=== PATIENT | female | born 1975 ===

== ENCOUNTER 2023-05-15 09:56 | Outpatient (REF) | payer MEDICAID, SELFPAY ==
--- NOTE | ~2023-05-15 | MR_ITS ---
EXAMINATION: MR CERVICAL SPINE WITHOUT CONTRAST CLINICAL INFORMATION: Spastic paraparesis COMPARISON: None TECHNIQUE: MRI of the cervical spine was obtained using routine sequences without contrast. FINDINGS: Motion degraded examination which somewhat limits assessment of cord signal and neural foraminal patency. Normal anatomic alignment. No suspicious marrow signal or focal osseous lesion. The vertebral body heights are maintained. Mild multilevel disc desiccation and height loss.No cervical cord signal abnormality within the limitations of motion artifact. Limited evaluation of the soft tissues of the neck without demonstrated abnormalities. The flow voids of the major cervical vessels are maintained. The cerebellar tonsils are slightly low-lying and extend up to 5 mm below the foramen magnum. No mass effect on the cervicomedullary junction. SPINAL LEVELS: C2-C3: No significant spinal canal or neuroforaminal narrowing C3-C4: Mild facet arthropathy and left uncovertebral hypertrophy. Suggestion of moderate left neural foraminal narrowing. No significant spinal canal stenosis. C4-C5: Uncovertebral hypertrophy.. Suggestion of mild bilateral neural foraminal narrowing. No significant spinal canal stenosis. C5-C6: Left greater than right uncovertebral hypertrophy and mild facet arthropathy. Suggestion of mild right and moderate left neural foraminal narrowing. C6-C7: No significant spinal canal or neuroforaminal narrowing C7-T1: No significant spinal canal or neuroforaminal narrowing MR/MR cervical spine wo con IMPRESSION: Motion degraded examination which somewhat limits assessment of cord signal and neural foraminal patency. 1. No significant spinal canal stenosis, cord compression, or cord signal abnormality within the limitations of motion. 2. Mild to moderate neural foraminal stenosis from C3-C4 to C5-C6 as described above. 3. Slightly low-lying cerebellar tonsils which extend up to 5 mm below the foramen magnum.
== END 2023-05-15 09:57 | disposition home or self-care (01) ==
LOC: HO.MRI 09:56
PROVIDERS: PCP Family Medicine; Visit Provider Psychiatry & Neurology Neurology
DX: G83.89 Other specified paralytic syndromes (principal)
CPT/HCPCS: 72141

== ENCOUNTER 2023-09-30 10:35 | Outpatient (REF) | payer OTHER, SELFPAY ==
--- NOTE | ~2023-09-30 | MR_ITS ---
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 COMPARISON: None available. TECHNIQUE: MRI of the thoracic spine was obtained using routine sequences without contrast. Technical note: Very limited study due to excessive gross patient motion artifact on multiple sequences. FINDINGS: ALIGNMENT: Mild thoracic kyphosis centered at T5-T6 with slight levocurvature at this level. VERTEBRAL BODIES AND BONE MARROW: Vertebral body heights are well maintained. No significant or suspicious bone marrow edema is identified within the limitations of the study. T1 marrow signal is difficult to evaluate due to excessive motion artifact. Cannot exclude diffusely hypointense T1 marrow signal which is nonspecific and should be correlated with CBC with differential and clinical history to exclude chronic anemia or marrow infiltrative disorders but the findings could also be physiologic such as secondary to obesity or smoking. DISC SPACES AND ENDPLATES: Okqu-iw-clnjlsfl multilevel intervertebral disc space height loss is noted between C4-C5 and T10-T11 inclusive, with mild degrees of disc desiccation at these levels and minor degrees of anterior marginal endplate spurring. Endplates appear grossly intact. PARASPINAL SOFT TISSUES: The visualized paravertebral soft tissues are grossly unremarkable. SPINAL CORD: Evaluation of spinal cord signal is limited due to motion artifact. Within these limitations, no definite focal spinal cord lesion, swelling or syrinx is identified. The conus terminates at the L2 level. No cord compression is identified. Limited assessment. SPINAL LEVELS: Limited visualization at C7-T1. No spinal canal or significant neural foraminal stenosis. No disc herniations are identified and there is no significant thoracic spinal canal stenosis. There is mild facet arthropathy on the right at T11-T12 and there is mild right-sided and moderate left-sided facet arthrosis at T9-T10 with [id number] bilateral neural foraminal stenosis at T9-T10. MR/MR thoracic spine wo con IMPRESSION: 1. Limited study due to excessive motion artifact. 2. Mild thoracic kyphosis centered at T5-T6 with slight levocurvature at this level. 3. Vhwx-yz-qczkwtya multilevel discogenic degenerative changes between T4-T5 and T10-T11 inclusive, with no significant disc herniations, spinal canal stenosis or cord compression. There is facet arthropathy at T9-T10 with [id number] bilateral neural foraminal stenosis at this level. 4. No definite spinal cord lesion, swelling or syrinx is identified within the limitations of the study. 5. Diffusely hypointense T1 marrow signal seen throughout the visualized cervical and thoracic spine. This is nonspecific and should be correlated with CBC with differential as discussed above. The findings could be physiologic such as secondary to obesity or smoking.
== END 2023-09-30 10:36 | disposition home or self-care (01) ==
LOC: HO.MRI 10:35
PROVIDERS: Visit Provider Psychiatry & Neurology Neurology
DX: G83.89 Other specified paralytic syndromes (principal)
CPT/HCPCS: 72146

== ENCOUNTER 2024-02-25 11:03 | Outpatient (AMB) | payer MEDICAID, SELFPAY ==
--- NOTE | 2024-02-25 11:06 | A.OFFVIS_ITS ---
Vital Signs 02/25/24 11:15 BP 114/60 Blood Pressure Location Rt brachial Position Sitting Pulse 81 Pulse Source Pulse Oximeter Pulse Oximetry (%) 99 Oxygen Delivery Method Room Air Intake Visit Reasons: RA Intake Note: New pt presents today for RA consult. Previous Rheum in [place] S/p ED [facility] 11/22/23 Currently in [facility] rehab in [place] for the past 2 years after asthma attack Unable to be discharged yet. 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 Required: No Accompanied by: Self / Same As Patient Allergies kiwi Allergy (Verified 02/25/24 11:11) Unknown seafood Allergy (Verified 02/25/24 11:11) Unknown Medication List - Last Reconciled 02/25/24 by Israel Lawler MD albuterol sulfate 2.5 mg inhalation Q6H amitriptyline 10 mg PO BEDTIME apixaban 2.5 mg PO BID baclofen 20 mg PO TID cetirizine (Zyrtec) 10 mg PO DAILY PRN cholecalciferol (vitamin D3) 50 mcg PO DAILY duloxetine 60 mg PO BID fluticasone propion-salmeterol 500-50 mcg/dose (Advair Diskus) 1 inh inhalation Q12H melatonin 6 mg PO BEDTIME PRN methadone (Methadone Intensol) 90 mg PO DAILY montelukast 10 mg PO DAILY omeprazole 40 mg PO DAILY prazosin 6 mg PO BEDTIME tizanidine (Zanaflex) 2 mg PO Q8H PRN trazodone 50 mg PO BEDTIME umeclidinium 62.5 mcg/actuation (Incruse Ellipta) 1 inh inhalation DAILY HPI Comments Details: This is a 48-year-old female who is transferred from rehab for evaluation of her underlying autoimmune rheumatic conditions. Patient stated that she initially presented with skin rashes on her face. Initially it was thought to be lupus. She was evaluated by steam cleaning machine operator and had multiple blood tests and was eventually diagnosed with dermatomyositis. After some time she was diagnosed with rheumatoid arthritis. She was only treated with steroids. She does not recall being on any other immune modulator. She stated that 2 years ago she presented to the hospital with an asthma exacerbation and had to be intubated. She was in a coma for 3 weeks, it took her 8 months to be able to move. She has been on rehab for almost 2 years now due to inability to go up the stairs. She continues to have significant pain in her hands, wrists, ankles. She feels as if her bones are broken. She has had deformity of her feet, look like a clubfoot. She has been evaluated by a neurologist. She also had multiple DVTs, she is on Eliquis. She is unaware of any family history of an autoimmune rheumatic disease. [facility] Medical History Multiple episodes of deep venous thrombosis Dysphagia, oropharyngeal phase GERD without esophagitis Essential hypertension Insomnia Generalized anxiety disorder Obesity Major depressive disorder, recurrent Post-traumatic stress disorder, chronic Obstructive sleep apnea Severe persistent asthma with status asthmaticus Other rheumatoid arthritis with rheumatoid factor of other specified site Other dermatomyositis with myopathy Fibromyalgia Drug-induced myopathy Surgical History S/P total abdominal hysterectomy History of surgery Family History Mother Asthma Colon cancer Familial adenomatous polyposis Father No problems noted. Other Family history of polyps in the colon Social History Alcohol intake: current Alcohol intake frequency: holidays/special occasions only Patient Tobacco Use Status: Former Tobacco user [place] of [place] [facility] [place] myalgias, Reports arthralgias, Reports joint swelling, Reports limited range of motion and Reports stiffness Skin/Breast Reports rash Physical Exam Vital Signs: Last Vital Signs Pulse 81 02/25/24 11:15 BP 114/60 02/25/24 11:15 Pulse Ox 99 02/25/24 11:15 Oxygen Delivery Method Room Air 02/25/24 11:15 Const Other: Cushingoid. On a wheelchair General: cooperative, healthy appearing and comfortable Nutritional Appearance: obese Orientation/consciousness: patient oriented x3 Limitations: wheelchair HEENT Other: laguna facies Mouth: moist mucous membranes Resp Effort & Inspection: normal respiratory effort and able to speak in complete sentences Auscultation: clear to auscultation bilaterally Cardio Rate: regular rate Rhythm: regular rhythm Skin Other: Significant skin thickening of her legs down words, Neuro General: patient oriented x3 Extrem Other: Bilateral tender wrists and pain with flexion-extension Multiple tender PIP is bilaterally without significant swelling Normal nailfold capillaroscopy Normal range of motion of elbows, shoulders without pain Proximal muscle strength 5/5 all 4 extremities Assessment & Plan Assessment & Plan (1) Other rheumatoid arthritis with rheumatoid factor of other specified site: Code(s): M05.8A - Other rheumatoid arthritis with rheumatoid factor of other specified site Category: Medical Plan: This is a 48-year-old female who transferred from rehab for evaluation of her underlying autoimmune rheumatic disease. She states that she was diagnosed with dermatomyositis about 10 years ago, shortly after she was diagnosed with rheumatoid arthritis. She does not recall ever being on any immune modulator other than steroids. Advised patient to try to find the name of her previous steam cleaning machine operator or us to retrieve records. Order comprehensive serology to better understand her underlying autoimmune rheumatic disease. Patient also has significant skin thickening of her lower extremities, possible scleroderma. Will check serologies. If nondiagnostic, can consider a skin biopsy (2) Multiple episodes of deep venous thrombosis: Comment: on Jesús Code(s): I82.509 - Chronic embolism and thrombosis of unspecified deep veins of unspecified lower extremity Category: Medical Plan: Check antiphospholipid antibodies Plan I spent 61 minutes reviewing patient's chart, evaluating patient, ordering diagnostic workup, counseling patient and documenting in the chart Orders: Orders FRANK Reflex Titer and Pattern Today M32.9 - Systemic lupus erythematosus, unspecified Complement C3 Today M32.9 - Systemic lupus erythematosus, unspecified Complete Blood Count Auto Diff Today M32.9 - Systemic lupus erythematosus, unspecified Protein Electrophoresis, Serum Today M32.9 - Systemic lupus erythematosus, unspecified Rheumatoid Factor Today M05.8A - Other rheumatoid arthritis with rheumatoid factor of other specified site Cyclic Citrullinated Peptide Today M05.8A - Other rheumatoid arthritis with rheumatoid factor of other specified site Beta-2 Glycoprotein Antibody Today I82.509 - Chronic embolism and thrombosis of unspecified deep veins of unspecified lower extremity Cardiolipin Antibodies Today I82.509 - Chronic embolism and thrombosis of unspecified deep veins of unspecified lower extremity Lupus Anticoagulant Panel Today I82.509 - Chronic embolism and thrombosis of unspecified deep veins of unspecified lower extremity Aldolase Today M33.12 - Other dermatomyositis with myopathy Gamma Glutamyl Transpeptidase Today M33.12 - Other dermatomyositis with myopathy Anti Extractable Nuclear Ag Today M32.9 - Systemic lupus erythematosus, unspecified Anti DNA DS Antibody Today M32.9 - Systemic lupus erythematosus, unspecified Complement C4 Today M32.9 - Systemic lupus erythematosus, unspecified C Reactive Protein Today M32.9 - Systemic lupus erythematosus, unspecified DNA Double Stranded-Crithidia Today M32.9 - Systemic lupus erythematosus, unspecified Erythrocyte Sedimentation Rate Today M32.9 - Systemic lupus erythematosus, unspecified Protein Creatinine Ratio, Ur Today M32.9 - Systemic lupus erythematosus, unspecified Sjogren's Antibodies Today M32.9 - Systemic lupus erythematosus, unspecified UA w Microscopic Today M32.9 - Systemic lupus erythematosus, unspecified Comprehensive Met. Panel Today M32.9 - Systemic lupus erythematosus, unspecified Hepatitis A,B,C Profile Today Z11.59 - Encounter for screening for other viral diseases Immunofixation Pnl, Serum Today M32.9 - Systemic lupus erythematosus, unspecified T Spot TB Today Z11.7 - Encounter for testing for latent tuberculosis infection Scleroderma 12 Panel Today M34.9 - Systemic sclerosis, unspecified MSA Panel Extended Today M33.13 - Other dermatomyositis without myopathy Creatine Kinase Total Today M33.12 - Other dermatomyositis with myopathy Lactate Dehydrogenase Today M33.12 - Other dermatomyositis with myopathy Coding Level of Care Code New Pt Level 5 (12533) Diagnoses Other rheumatoid arthritis with rheumatoid factor of other specified site M05.8A Multiple episodes of deep venous thrombosis I82.509
[2024-02-25 11:15] VITALS: BP 114/60; PULSE 81; O2SAT 99
== END 2024-02-25 11:51 | disposition home or self-care (01) ==
PROVIDERS: PCP Family Medicine; Visit Provider Student in an Organized Health Care Education/Training Program
DX: M05.8A Other rheumatoid arthritis with rheumatoid factor of other specified site (principal); I82.509 Chronic embolism and thrombosis of unspecified deep veins of unspecified lower extremity
CPT/HCPCS: 99205

== ENCOUNTER → 2024-02-25 11:03 | Outpatient (BNVA) | payer MEDICAID, SELFPAY | PROVIDERS: PCP Family Medicine; Visit Provider Student in an Organized Health Care Education/Training Program | DX: M05.8A Other rheumatoid arthritis with rheumatoid factor of other specified site (principal); I82.509 Chronic embolism and thrombosis of unspecified deep veins of unspecified lower extremity | CPT/HCPCS: 99202 ==

== ENCOUNTER 2024-03-02 08:08 | Outpatient (REF) | payer MEDICAID, SELFPAY ==
[2024-03-02 08:40] LABS: MANUAL DIFF FLAG NO
[2024-03-02 09:28] LABS: Basophils Percent Auto 0.4 % (0-2); Eosinophils Absolute Auto 0.4 X10*3/uL (0.0-0.4); Eosinophils Percent Auto 3.2 % (0-4); Hematocrit 30.2 % (37.0-47.0); Hemoglobin 8.8 g/dl (12.0-16.0); Imm Gran Abs Auto 0.05 X10*3/uL (0.00-0.03); Imm Gran Pct Auto 0.5 % (0.0-0.4); Lymphocytes Absolute Auto 1.6 X10*3/uL (1.2-4.9); Lymphocytes Percent Auto 14.8 % (20-40); Mean Corpuscular HGB Conc 29.1 g/dl (31.0-35.0); Mean Corpuscular Hemoglobin 21.1 pg (27.0-33.0); Mean Corpuscular Volume 72.4 fL (80.0-98.0); Mean Platelet Volume 9.7 fL (9.4-12.3); Monocytes Absolute Auto 0.7 X10*3/uL (0.1-1.2); Monocytes Percent Auto 5.9 % (2-11); NRBC Pct Auto 0.2 /100WBC (0.0-0.2); Neutrophils Absolute Auto 8.4 x10*3/uL (2.0-8.3); Neutrophils Percent Auto 75.2 % (45-73); Platelet Count 391 X10*3/uL (160-400); Red Blood Count 4.17 X10*6/uL (4.20-5.50); White Blood Count 11.1 X10*3/uL (4.8-10.8)
[2024-03-02 09:36] LABS: Appearance Urine Clear; Color Urine Yellow; Glucose Urine UA Negative (Negative); Leukocyte Esterase Urine Negative (Negative); Nitrite Urine Negative (Negative); PH 6.5 (5.0-9.0); Specific Gravity - Urine 1.015 (1.005-1.025); Urine Blood Negative (Negative); Urine Ketones Negative (Negative); Urine Protein Negative (Neg-Trace)
[2024-03-02 09:42] LABS: Bacteria Urine 1+ (None Seen); Hyaline Casts Urine 0-2 /LPF (0-2); RBC Urine 0-2 /HPF (0-2); WBC Urine 0-5 /HPF (0-5)
[2024-03-02 09:55] LABS: Creatinine Urine 90.53 mg/dL; Total Protein Urine Random < 7 mg/dL (<12)
[2024-03-02 10:00] LABS: Alanine Aminotransferase 18 U/L (0-31); Albumin Level 3.7 g/dL (3.5-5.0); Alkaline Phosphatase 137 U/L (39-117); Anion Gap 13 (12-20); Aspartate Amino Transferase 19 U/L (5-31); Bilirubin Total 0.3 mg/dL (0.0-1.0); Blood Urea Nitrogen 12 mg/dL (9-16); C Reactive Protein 1.82 mg/dL (< or = 0.50); Calcium 9.5 mg/dL (8.4-10.2); Carbon Dioxide 30 mmol/L (22-29); Chloride 101 mmol/L (96-108); Estimated Glomerular Filt Rate > 60; Glucose Random 137 mg/dL (60-115); Lactate Dehydrogenase 319 U/L (122-220); Sodium 140 mmol/L (135-145); Total Protein 7.9 g/dL (6.5-8.0)
[2024-03-02 10:08] LABS: Erythrocyte Sedimentation Rate 40 MM/HR (0-20)
[2024-03-02 10:20] LABS: HBS Num1 5.48 mIU/mL (0-7.99); HBsAGNum1 0.26 S/CO (0.00-0.99); Hepatitis A Antibody IgM 0.16 Index (0-0.79); Hepatitis B Surface Antigen Negative (Negative); ~HepC Num1 0.21 S/CO (0.00-0.79); ~Hepatitis A Antibody IgM Nonreactive (Nonreactive); ~Hepatitis B Surface Antibody NONREACTIVE (Nonreactive); ~Hepatitis C Antibody Nonreactive (Nonreactive)
[2024-03-02 10:32] LABS: Rheumatoid Factor < 13.0 IU/mL (<15.0)
[2024-03-02 11:31] LABS: Gamma Glutamyl Transpeptidase 99 U/L (7-33)
[2024-03-02 12:26] LABS: HBc Num2 0.74 S/CO; HBc Num3 0.59 S/CO; Hepatitis B Core Antibody Nonreactive (Nonreactive)
[2024-03-03 23:34] LABS: Complement C3 200 mg/dL (83-193)
[2024-03-04 14:18] LABS: Anti Nuclear Antibody Screen NEGATIVE (NEGATIVE)
[2024-03-04 17:07] LABS: Anti DNA DS Antibody <1 IU/mL; Antibody to SS-A Antigen <1.0 NEG AI (<1.0 NEG); Antibody to SS-B Antigen <1.0 NEG AI (<1.0 NEG); SM/Ribonucleoprotein Ab <1.0 NEG AI (<1.0 NEG); Smith Protein <1.0 NEG AI (<1.0 NEG)
[2024-03-04 20:18] LABS: Cardiolipin IgG Ab <2.0 GPL-U/mL; Cardiolipin IgM Ab 2.6 MPL-U/mL
[2024-03-04 23:19] LABS: Cyclic Citrullinated Peptide <16 UNITS
[2024-03-05 08:28] LABS: TS Negative Control Passed; TS Panel A 0; TS Panel B 4; TS Positive Control Passed; TSpotTB Negative (Negative)
[2024-03-05 09:59] LABS: IgA 432 mg/dL (47-310); IgG 1878 mg/dL (600-1640); IgM 179 mg/dL (50-300)
[2024-03-05 17:03] LABS: Prot Elec - Albumin 3.5 g/dL (3.8-4.8); Prot Elec - Alpha1 0.4 g/dL (0.2-0.3); Prot Elec - Alpha2 0.8 g/dL (0.5-0.9); Prot Elec - Beta 1 0.5 g/dL (0.4-0.6); Prot Elec - Beta 2 0.7 g/dL (0.2-0.5); Prot Elec - Gamma 1.7 g/dL (0.8-1.7); Prot Elec - Total Protein 7.5 g/dL (6.1-8.1)
[2024-03-05 22:59] LABS: Aldolase 8.3 U/L (<=8.1)
[2024-03-09 11:39] LABS: DNAds, Crithidia Antibody Negative (Negative)
[2024-03-09 12:58] LABS: DRVVT Confirmation Negative (Negative); Hexagonal Phase Neutralization Negative (Negative); PTT (LAC) Screen 43 sec (<=40)
[2024-03-10 07:09] LABS: Beta-2 Glycoprotein IgA <2.0 U/mL (<20.0); Beta-2 Glycoprotein IgG <2.0 U/mL (<20.0)
[2024-03-12 15:53] LABS: Centromere Protein A Ab <11 SI (<11); Centromere Protein B Ab <11 SI (<11); Fibrillarin Ab <11 SI (<11); PM SCL 100 Ab <11 SI (<11); PM SCL 75 Ab <11 SI (<11); RNA Polymerase III RP11 Ab <11 SI (<11); RNA Polymerase III RP155 Ab <11 SI (<11); SCL-70 Extractable Nuclear Ab <11 SI (<11); Th-To Ab <11 SI (<11); U1 SNRNP RNP 70KD <11 SI (<11); U1 SNRNP RNP A <11 SI (<11); U1 SNRNP RNP C <11 SI (<11)
[2024-03-14 16:08] LABS: Cytosolic 5'nuc 1A Ab IgG <5 Units; Ej Ab <11 SI (<11); HMGCR Ab IgG <2 CU (<20); Jo-1 Ab <11 SI (<11); MDA5 Ab <11 SI (<11); Mi-2 alpha Ab <11 SI (<11); Mi-2 beta Ab <11 SI (<11); NXP-2 (MJ) Ab <11 SI (<11); Oj Ab <11 SI (<11); Pl-12 Ab <11 SI (<11); Pl-7 Ab <11 SI (<11); SRP Ab <11 SI (<11); TIF1 gamma Ab <11 SI (<11)
== END 2024-03-02 08:09 | disposition home or self-care (01) ==
LOC: HO.LAB 08:08
PROVIDERS: Visit Provider Student in an Organized Health Care Education/Training Program
DX: Z11.59 Encounter for screening for other viral diseases (principal); Z11.7 Encounter for testing for latent tuberculosis infection; M32.9 Systemic lupus erythematosus, unspecified; M05.8A Other rheumatoid arthritis with rheumatoid factor of other specified site; M33.12 Other dermatomyositis with myopathy; M34.9 Systemic sclerosis, unspecified; M33.13 Other dermatomyositis without myopathy
CPT/HCPCS: 36415; 80053; 81001; 82085; 82550; 82570; 82784; 82977; 83516; 83520; 83615; 84156; 84165; 84182; 85025; 85597; 85598; 85613; 85652; 85730; 86038; 86140; 86146; 86147; 86160; 86200; 86225; 86235; 86255; 86334; 86431; 86481; 86704; 86706; 86709; 86803; 87340

== ENCOUNTER 2024-04-23 10:19 | Outpatient (AMB) | payer MEDICAID, SELFPAY ==
--- NOTE | 2024-04-23 10:25 | A.OFFVIS_ITS ---
Vital Signs 04/23/24 10:31 Height 5 ft 1 in Weight 210 lb BMI 39.7 BP 115/62 Blood Pressure Location Lt brachial Position Sitting Pulse 89 Pulse Source Pulse Oximeter Pulse Oximetry (%) 95 Oxygen Delivery Method Room Air Intake Visit Reasons: RA/cm Intake Note: Patient presents for RA. Allergies kiwi Allergy (Verified 04/23/24 10:29) Unknown seafood Allergy (Verified 04/23/24 10:29) Unknown Medication List - Last Reconciled 04/23/24 by Israel Lawler MD albuterol sulfate 2.5 mg inhalation Q6H amitriptyline 10 mg PO BEDTIME apixaban 2.5 mg PO BID baclofen 20 mg PO TID cetirizine (Zyrtec) 10 mg PO DAILY PRN cholecalciferol (vitamin D3) 50 mcg PO DAILY duloxetine 60 mg PO BID fluticasone propion-salmeterol 500-50 mcg/dose (Advair Diskus) 1 inh inhalation Q12H melatonin 6 mg PO BEDTIME PRN methadone (Methadone Intensol) 55 mg PO DAILY montelukast 10 mg PO DAILY omeprazole 40 mg PO DAILY prazosin 6 mg PO BEDTIME tizanidine (Zanaflex) 2 mg PO Q8H PRN trazodone 50 mg PO BEDTIME umeclidinium 62.5 mcg/actuation (Incruse Ellipta) 1 inh inhalation DAILY HPI Comments Details: Patient returns for follow-up. She stated that 4 days ago she started have pain and swelling of her right foot. She started antibiotics yesterday he continues to have diffuse joint pain especially of her right hand and wrist Initial history: This is a 48-year-old female who is transferred from rehab for evaluation of her underlying autoimmune rheumatic conditions. Patient stated that she initially presented with skin rashes on her face. Initially it was thought to be lupus. She was evaluated by rn provider relations and had multiple blood tests and was eventually diagnosed with dermatomyositis. After some time she was diagnosed with rheumatoid arthritis. She was only treated with steroids. She does not recall being on any other immune modulator. She stated that 2 years ago she presented to the hospital with an asthma exacerbation and had to be intubated. She was in a coma for 3 weeks, it took her 8 months to be able to move. She has been on rehab for almost 2 years now due to inability to go up the stairs. She continues to have significant pain in her hands, wrists, ankles. She feels as if her bones are broken. She has had deformity of her feet, look like a clubfoot. She has been evaluated by a neurologist. She also had multiple DVTs, she is on Eliquis. She is unaware of any family history of an autoimmune rheumatic disease. [facility] Medical History (Updated 04/23/24 @ 11:16 by Israel Lawler MD) Multiple episodes of deep venous thrombosis Dysphagia, oropharyngeal phase GERD without esophagitis Essential hypertension Insomnia Generalized anxiety disorder Obesity Major depressive disorder, recurrent Post-traumatic stress disorder, chronic Obstructive sleep apnea Severe persistent asthma with status asthmaticus Other dermatomyositis with myopathy Fibromyalgia Drug-induced myopathy Surgical History S/P total abdominal hysterectomy History of surgery Family History Mother Asthma Colon cancer Familial adenomatous polyposis Father No problems noted. Other Family history of polyps in the colon Social History Alcohol intake: current Alcohol intake frequency: holidays/special occasions only Patient Tobacco Use Status: Former Tobacco user Review of Systems Musc Reports myalgias, Reports arthralgias, Reports joint swelling, Reports limited range of motion and Reports stiffness Skin/Breast Reports rash Physical Exam Vital Signs: Last Vital Signs Pulse 89 04/23/24 10:31 BP 115/62 04/23/24 10:31 Pulse Ox 95 04/23/24 10:31 Oxygen Delivery Method Room Air 04/23/24 10:31 BMI result Body Mass Index 39.7 Const Other: Cushingoid. On a wheelchair General: cooperative, healthy appearing and comfortable Nutritional Appearance: obese Orientation/consciousness: patient oriented x3 Limitations: wheelchair HEENT Other: laguna facies Mouth: moist mucous membranes Resp Effort & Inspection: normal respiratory effort and able to speak in complete sentences Auscultation: clear to auscultation bilaterally Cardio Rate: regular rate Rhythm: regular rhythm Skin Other: Significant skin thickening of her legs downwards Right foot erythema swelling warmth and tenderness dorsally Neuro General: patient oriented x3 Extrem Other: Bilateral tender wrists and pain with flexion-extension Multiple tender PIP is bilaterally without significant swelling Normal nailfold capillaroscopy Normal range of motion of elbows, shoulders without pain Proximal muscle strength 5/5 all 4 extremities Assessment & Plan Assessment & Plan (1) Seronegative rheumatoid arthritis: Comment: dx around 2013 PDN only Code(s): M06.00 - Rheumatoid arthritis without rheumatoid factor, unspecified site Category: Medical Plan: This is a 48-year-old female with seronegative RA who presents for follow-up after completion of her diagnostic workup. She continues to have diffuse synovitis.. Multiple swollen and tender joints on exam. High inflammatory markers. We will need to start DMARDs.. Given patient's multiple comorbidities and multiple medication interactions she would not be a candidate for multiple medicines, hydroxychloroquine would be contraindicated as patient is on methadone and there is risk of QTC prolongation. Not a candidate for methotrexate, leflunomide, sulfasalazine due to transaminitis. Discussed risks and benefits of TNF inhibitors. Patient agreed to proceed. Will start prior authorization for [facility] before next visit in 3 months (2) Skin thickening: Code(s): R23.4 - Changes in skin texture Category: Medical Plan: Significant skin thickening of her legs , ankles and feet downwards. Possible scleroderma. Will refer patient to general surgery for a full-thickness skin biopsy (3) Cellulitis: Code(s): L03.90 - Cellulitis, unspecified Category: Medical Qualifiers: Site of cellulitis: extremity Laterality: right Site of cellulitis of extremity: lower extremity Qualified Code(s): L03.115 - Cellulitis of right lower limb Plan: Right foot cellulitis. Patient started on antibiotics yesterday (4) Long-term use of high-risk medication: Code(s): Z79.899 - Other exterminator termite (current) drug therapy Category: Medical Plan: Side effects of Enbrel were discussed with the patient in detail including increased risk of infection, demyelinating disease, reactivation of latent TB, possible increased risk of solid and skin tumors. Patient fully aware. Advised patient to seek medical care MOE if patient has an infection and advised patient to stop the medication until the infection is resolved. Plan I spent 47 minutes reviewing patient's chart, evaluating patient, ordering diagnostic workup, counseling patient and documenting in the chart Orders: Orders Complete Blood Count Auto Diff 3 Months M05.8A - Other rheumatoid arthritis with rheumatoid factor of other specified site Erythrocyte Sedimentation Rate 3 Months M05.8A - Other rheumatoid arthritis with rheumatoid factor of other specified site Comprehensive Met. Panel 3 Months M05.8A - Other rheumatoid arthritis with rheumatoid factor of other specified site C Reactive Protein 3 Months M05.8A - Other rheumatoid arthritis with rheumatoid factor of other specified site Referrals General Surgery Referral M34.9 - Systemic sclerosis, unspecified Coding Level of Care Code Est Pt Level 5 (71414) Complex EM visit Add On G2211 Diagnoses Seronegative rheumatoid arthritis M06.00 Skin thickening R23.4 Cellulitis of right lower extremity L03.115 Site of cellulitis: extremity Laterality: right Site of cellulitis of extremity: lower extremity Long-term use of high-risk medication Z79.899
[2024-04-23 10:31] VITALS: BP 115/62; PULSE 89; O2SAT 95; BMI 39.7
== END 2024-04-23 11:11 | disposition home or self-care (01) ==
PROVIDERS: PCP Hospitalist; Visit Provider Student in an Organized Health Care Education/Training Program
DX: M06.09 Rheumatoid arthritis without rheumatoid factor, multiple sites (principal); R23.4 Changes in skin texture; L03.115 Cellulitis of right lower limb; Z79.899 Other long term (current) drug therapy
CPT/HCPCS: 99215

== ENCOUNTER → 2024-04-23 10:19 | Outpatient (BNVA) | payer MEDICAID, SELFPAY | PROVIDERS: PCP Hospitalist; Visit Provider Student in an Organized Health Care Education/Training Program | DX: M06.00 Rheumatoid arthritis without rheumatoid factor, unspecified site (principal); R23.4 Changes in skin texture; L03.115 Cellulitis of right lower limb; Z79.899 Other long term (current) drug therapy | CPT/HCPCS: 99212 ==

== ENCOUNTER 2024-05-05 14:24 | Outpatient (AMB) | payer MEDICAID, SELFPAY ==
--- NOTE | 2024-05-05 14:30 | A.OFFVIS_ITS ---
Vital Signs 05/05/24 14:38 Height 5 ft 1 in Weight 210 lb BMI 39.7 Intake Visit Reasons: Cellulitis of right lower limb Intake Note: This patient presents for Cellulitis of right lower limb assessment, full thickness skin biopsy of her feet. Patient c/o; reports no complaints. Administrative Office Manager Required: No Accompanied by: Self / Same As Patient Allergies kiwi Allergy (Verified 05/05/24 14:39) Unknown seafood Allergy (Verified 05/05/24 14:39) Unknown Medication List - Last Reconciled 05/05/24 by Barry Ellis MD albuterol sulfate 2.5 mg inhalation Q6H amitriptyline 10 mg PO BEDTIME apixaban 2.5 mg PO BID baclofen 20 mg PO TID cetirizine (Zyrtec) 10 mg PO DAILY PRN cholecalciferol (vitamin D3) 50 mcg PO DAILY duloxetine 60 mg PO BID Enbrel SureClick (etanercept) 50 mg subcut QWEEK NS fluticasone propion-salmeterol 500-50 mcg/dose (Advair Diskus) 1 inh inhalation Q12H melatonin 6 mg PO BEDTIME PRN methadone (Methadone Intensol) 55 mg PO DAILY montelukast 10 mg PO DAILY omeprazole 40 mg PO DAILY prazosin 6 mg PO BEDTIME tizanidine (Zanaflex) 2 mg PO Q8H PRN trazodone 50 mg PO BEDTIME umeclidinium 62.5 mcg/actuation (Incruse Ellipta) 1 inh inhalation DAILY HPI HPI Cellulitis of right lower limb: Details: 48 year female referred for a skin biopsy. She is being followed by the distribution sales representative because of rheumatoid arthritis. She has diffuse synovitis along with significant joint swelling and pain. 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 She has good use of her upper extremities but is unable to walk or stand up. [facility] Medical History Multiple episodes of deep venous thrombosis Dysphagia, oropharyngeal phase GERD without esophagitis Essential hypertension Insomnia Generalized anxiety disorder Obesity Major depressive disorder, recurrent Post-traumatic stress disorder, chronic Obstructive sleep apnea Severe persistent asthma with status asthmaticus Other dermatomyositis with myopathy Fibromyalgia Drug-induced myopathy Surgical History S/P total abdominal hysterectomy History of surgery Family History Mother Asthma Colon cancer Familial adenomatous polyposis Father No problems noted. Other Family history of polyps in the colon Social History Alcohol intake: current Alcohol intake frequency: holidays/special occasions only Patient Tobacco Use Status: Former Tobacco user Review of Systems Const Denies chills and Denies fever(s) Card Denies chest pain Resp Denies cough GI Denies abdominal pain Denies difficulty voiding Musc Reports back pain and Reports arthralgias Physical Exam Vital Signs: BMI result Body Mass Index 39.7 Const Other: On wheelchair General: comfortable and no acute distress Resp Effort & Inspection: normal respiratory effort Cardio Rate: regular rate GI Palpation (GI): Soft to palpation and not firm Neuro Other: Both ankles are in plantar extension Extrem Other: Some skin thickening of both lower extremities Office Procedures Skin Biopsy Details: The area of the lower leg distally was chosen for the skin biopsy. This was prepped and draped. Lidocaine 1% was used for local anesthesia. I used a dermal punch biopsy kit and a circular piece of full-thickness of the skin and subcutaneous layer was excised. This was sent as a specimen. I applied dressings using gauze. She tolerated procedure well. There were no immediate complications. Informed consent given: Yes Type of Biopsy: punch Anesthesia: local Hemostasis: pressure Wound closure: secondary intention Patient tolerated procedure: well Complications: No Assessment & Plan Assessment & Plan (1) Skin thickening: Code(s): R23.4 - Changes in skin texture Category: Medical Plan: I was requested to do a skin biopsy. A skin biopsy full-thickness using a dermal punch biopsy kit was done. She tolerated procedure well She is to keep the dressings on until May 07. She can then get the incision wet. She has to change dressings daily starting that day She can follow up with me on a p.r.n. basis I plan to forward the results of the biopsy to her director of marketing operations. Orders: Orders Surgical Today R23.4 - Changes in skin texture Coding Level of Care Code New Pt Level 3 (91793) Diagnoses Skin thickening R23.4
[2024-05-05 14:38] VITALS: BMI 39.7
== END 2024-05-05 15:21 | disposition home or self-care (01) ==
PROVIDERS: PCP Hospitalist; Visit Provider Surgery
DX: R23.4 Changes in skin texture (principal)
CPT/HCPCS: 11104; 99203

== ENCOUNTER 2024-05-05 14:24 | Outpatient (REF) | payer MEDICAID, SELFPAY | END 2024-05-05 14:25 | disposition home or self-care (01) | LOC: HO.LNP 14:24 | PROVIDERS: PCP Hospitalist; Visit Provider Surgery | DX: R23.4 Changes in skin texture (principal) | CPT/HCPCS: 11104; 88304; 88305; 99202 ==

== ENCOUNTER 2024-07-28 10:20 | Outpatient (AMB) | payer MEDICAID, SELFPAY ==
--- NOTE | 2024-07-28 10:24 | MHC.OFFVIS ---
Vital Signs 07/28/24 10:30 Height 5 ft 1 in Weight 208 lb BMI 39.3 BP 115/60 Blood Pressure Location Lt brachial Position Sitting Pulse 80 Pulse Source Pulse Oximeter Pulse Oximetry (%) 98 Oxygen Delivery Method Room Air Intake Visit Reasons: RA/LM Intake Note: Patient presents for RA. Allergies kiwi Allergy (Verified 07/28/24 10:28) Unknown seafood Allergy (Verified 07/28/24 10:28) Unknown Medication List - Last Reconciled 07/28/24 by Israel Lawler MD albuterol sulfate 2.5 mg inhalation Q6H amitriptyline 10 mg PO BEDTIME apixaban 2.5 mg PO BID baclofen 20 mg PO TID cetirizine (Zyrtec) 10 mg PO DAILY PRN cholecalciferol (vitamin D3) 50 mcg PO DAILY duloxetine 60 mg PO BID Enbrel SureClick (etanercept) 50 mg subcut QWEEK NS fluticasone propion-salmeterol 500-50 mcg/dose (Advair Diskus) 1 inh inhalation Q12H melatonin 6 mg PO BEDTIME PRN methadone (Methadone Intensol) 55 mg PO DAILY montelukast 10 mg PO DAILY omeprazole 40 mg PO DAILY prazosin 6 mg PO BEDTIME tizanidine (Zanaflex) 2 mg PO Q8H PRN trazodone 50 mg PO BEDTIME umeclidinium 62.5 mcg/actuation (Incruse Ellipta) 1 inh inhalation DAILY HPI Comments Details: Patient returns for follow-up. She has been taking Enbrel injections regularly for the last 2 months. She states that her pains are about the same. She continues to have pain in her hands, continues to have burning bandlike pain in her right lower extremity especially at night. She has been having difficulty with range of motion of her left shoulder. Difficulty doing her hair. This started about 6-8 months ago. She completed physical therapy about a month ago without significant improvement. Initial history: This is a 48-year-old female who is transferred from rehab for evaluation of her underlying autoimmune rheumatic conditions. Patient stated that she initially presented with skin rashes on her face. Initially it was thought to be lupus. She was evaluated by vibrator equipment tester and had multiple blood tests and was eventually diagnosed with dermatomyositis. After some time she was diagnosed with rheumatoid arthritis. She was only treated with steroids. She does not recall being on any other immune modulator. She stated that 2 years ago she presented to the hospital with an asthma exacerbation and had to be intubated. She was in a coma for 3 weeks, it took her 8 months to be able to move. She has been on rehab for almost 2 years now due to inability to go up the stairs. She continues to have significant pain in her hands, wrists, ankles. She feels as if her bones are broken. She has had deformity of her feet, look like a clubfoot. She has been evaluated by a neurologist. She also had multiple DVTs, she is on Eliquis. She is unaware of any family history of an autoimmune rheumatic disease. [facility] Medical History Multiple episodes of deep venous thrombosis Dysphagia, oropharyngeal phase GERD without esophagitis Essential hypertension Insomnia Generalized anxiety disorder Obesity Major depressive disorder, recurrent Post-traumatic stress disorder, chronic Obstructive sleep apnea Severe persistent asthma with status asthmaticus Other dermatomyositis with myopathy Fibromyalgia Drug-induced myopathy Surgical History S/P total abdominal hysterectomy History of surgery Family History Mother Asthma Colon cancer Familial adenomatous polyposis Father No problems noted. Other Family history of polyps in the colon Social History Alcohol intake: current Alcohol intake frequency: holidays/special occasions only Patient Tobacco Use Status: Former Tobacco user Review of Systems [facility] Reports myalgias, Reports arthralgias, Reports limited range of motion, Reports radiating pain into limb and Reports stiffness Physical Exam Vital Signs: Last Vital Signs Pulse 80 07/28/24 10:30 BP 115/60 07/28/24 10:30 Pulse Ox 98 07/28/24 10:30 Oxygen Delivery Method Room Air 07/28/24 10:30 BMI result Body Mass Index 39.3 Const Other: Cushingoid. On a wheelchair General: cooperative, healthy appearing and comfortable Nutritional Appearance: obese Orientation/consciousness: patient oriented x3 Limitations: wheelchair HEENT Other: laguna facies Mouth: moist mucous membranes Resp Effort & Inspection: normal respiratory effort and able to speak in complete sentences Auscultation: clear to auscultation bilaterally Cardio Rate: regular rate Rhythm: regular rhythm Skin Other: Significant skin thickening of her legs downwards Neuro General: patient oriented x3 Extrem Other: No tenderness or swelling of both wrists and no pain with flexion-extension Squaring of right 1st CMC joint associated with tenderness No swelling or tenderness of her PIP is Multiple Heberden's nodes that are mildly tender Limited range of motion of left shoulder Few fibromyalgia tender points Bilateral knee crepitus Normal nailfold capillaroscopy Office Procedures AMB Joint Injection/Aspiration Joint Injection/Aspiration Primary Site: left shoulder Prep: site was prepped using sterile technique and ethochloride spray was applied Injected: 40 mg of, Kenalog, with 1 mL of, 1% plain lidocaine and in the subcromial space Approach Used: posterolateral Procedure: The patient tolerated the procedure well Coding Details: With the patient's consent the left shoulder was prepped with ChloraPrep and alcohol. Under a topical ethyl chloride spray the left subacromial space was injected with 40 mg of triamcinolone and 1 cc of 1% lidocaine. The patient tolerated the procedure without any acute adverse effects. - Large joint Procedure code (CPT) selection complete Office Meds Kenalog 40 mg/mL suspension for injection Performing Provider: Israel Lawler MD Performing Location: [facility] Administered by: Israel Lawler MD on 07/28/24 11:10 Dose Route Admin Location Dispensed Lot Number Expiration Date [facility] Meter Reading Clerk 40 mg intra-articular Left shoulder 1 mL [id number] 02/20/26 [address]-1 [employer] lidocaine (PF) 10 mg/mL (1 %) injection solution Performing Provider: Israel Lawler MD Performing Location: [facility] Administered by: Israel Lawler MD on 07/28/24 11:10 Dose Route Admin Location Dispensed Lot Number Expiration Date [facility] Meter Reading Clerk 10 mg Infiltration 2 mL [id number] 12/25/26 [id number] [facility] Results Reviewed Results Reviewed: Skin biopsy 04/2024 Skin, right leg, biopsy: Skin and subcutaneous tissue with scattered melanin pigment and dermal melanophages and non-specific septal thickening (see comment). COMMENT: The overall findings are non-specific and may not be billing representative of the clinical lesion. The differential diagnosis includes a resolving inflammatory process or scar. Diagnostic features of scleroderma are not identified Assessment & Plan Assessment & Plan (1) Seronegative rheumatoid arthritis: Comment: dx around 2013 PDN only Enbrel 05/2024 Code(s): M06.00 - Rheumatoid arthritis without rheumatoid factor, unspecified site Category: Medical Plan: This is a 48-year-old female with seronegative RA who presents for follow-up she has started Enbrel 50 mg weekly about 2 months ago. On exam there is no active synovitis. Her complaints today are related to degenerative arthritis as well as fibromyalgia and neuropathy. Continue with Enbrel 50 mg subcutaneously weekly Labs (CBC, CMP, ESR, CRP) before next visit in 3 months (2) Skin thickening: Code(s): R23.4 - Changes in skin texture Category: Medical Plan: Skin biopsy rule out scleroderma (3) Long-term use of high-risk medication: Code(s): Z79.899 - Other termite treater helper (current) drug therapy Category: Medical Plan: Side effects of Enbrel were discussed with the patient in detail including increased risk of infection, demyelinating disease, reactivation of latent TB, possible increased risk of solid and skin tumors. Patient fully aware. Advised patient to seek medical care MOE if patient has an infection and advised patient to stop the medication until the infection is resolved. (4) Subacromial bursitis of left shoulder joint: Code(s): M75.52 - Bursitis of left shoulder Category: Medical Plan: Symptomatic for the last 6-8 months, completing physical therapy about a month ago, remains symptomatic, with patient's consent, left shoulder was injected with Kenalog today. Plan I spent 25 minutes reviewing patient's chart, evaluating patient, ordering diagnostic workup, counseling patient and documenting in the chart Orders: Orders AMB Joint Injection/Aspiration Today M75.52 - Bursitis of left shoulder Medications: New lidocaine (PF) 10 mg Infiltration ONCE 2 mL 0RF M75.52 - Bursitis of left shoulder Kenalog (triamcinolone acetonide) 40 mg intra-articular ONCE 1 mL 0RF NS M75.52 - Bursitis of left shoulder Coding Level of Care Code Est Pt Level 4 (61080) Complex EM visit Add On G2211 Diagnoses Seronegative rheumatoid arthritis M06.00 Skin thickening R23.4 Long-term use of high-risk medication Z79.899 Subacromial bursitis of left shoulder joint M75.52 CPT Codes Coding - 17707 Large joint: 23580 - Large joint ([id number])
[2024-07-28 10:30] VITALS: BP 115/60; PULSE 80; O2SAT 98; BMI 39.3
== END 2024-07-28 11:07 | disposition home or self-care (01) ==
LOC: HO.RHE 10:20
PROVIDERS: PCP Hospitalist; Visit Provider Student in an Organized Health Care Education/Training Program
DX: M06.09 Rheumatoid arthritis without rheumatoid factor, multiple sites (principal); R23.4 Changes in skin texture; Z79.899 Other long term (current) drug therapy; M75.52 Bursitis of left shoulder
CPT/HCPCS: 20610; 99214

== ENCOUNTER → 2024-07-28 10:20 | Outpatient (BNVA) | payer MEDICAID, SELFPAY | PROVIDERS: PCP Hospitalist; Visit Provider Student in an Organized Health Care Education/Training Program | DX: M75.52 Bursitis of left shoulder (principal); M06.00 Rheumatoid arthritis without rheumatoid factor, unspecified site; R23.4 Changes in skin texture; Z79.899 Other long term (current) drug therapy | CPT/HCPCS: 20610; 99212; J2003; J3300 ==

== ENCOUNTER 2025-03-02 15:20 | Outpatient (AMB) | payer MEDICARE, MEDICAID, SELFPAY ==
--- NOTE | 2025-03-02 15:22 | A.OFFVIS_ITS ---
Vital Signs 03/02/25 15:33 Height 5 ft 1 in Weight 178 lb BMI 33.6 BP 112/74 Blood Pressure Location Lt brachial Position Sitting Pulse 78 Pulse Source Pulse Oximeter Pulse Oximetry (%) 98 Oxygen Delivery Method Room Air Intake Visit Reasons: RA Intake Note: Patient presents for RA follow up. Patient has not received Enbrel since [facility] was close down and patient is back home. Patient wants to continue Enbrel. Allergies kiwi Allergy (Verified 03/02/25 15:30) Unknown seafood Allergy (Verified 03/02/25 15:30) Unknown Medication List - Last Reconciled 03/02/25 by Jacqueline Baker MD albuterol sulfate 2.5 mg inhalation Q6H amitriptyline 10 mg PO BEDTIME apixaban 2.5 mg PO BID baclofen 20 mg PO TID cetirizine (Zyrtec) 10 mg PO DAILY PRN cholecalciferol (vitamin D3) 50 mcg PO DAILY duloxetine 60 mg PO BID fluticasone propion-salmeterol 500-50 mcg/dose (Advair Diskus) 1 inh inhalation Q12H melatonin 6 mg PO BEDTIME PRN methadone (Methadone Intensol) 55 mg PO DAILY montelukast 10 mg PO DAILY omeprazole 40 mg PO DAILY prazosin 6 mg PO BEDTIME tizanidine (Zanaflex) 2 mg PO Q8H PRN trazodone 50 mg PO BEDTIME umeclidinium 62.5 mcg/actuation (Incruse Ellipta) 1 inh inhalation DAILY HPI Comments Details: Patient is a 49-year-old female with who recurrent DVTs, seronegative rheumatoid arthritis, fibromyalgia and dermatomyositis here today for follow up Interval History: Patient last seen 07/28/[address] Lawler. At that visit she was following up for her multiple rheumatologic conditions including seronegative rheumatoid arthritis and dermatomyositis. She was on Enbrel 50 mg every week but despite this consistently for the past 2 months she reported that her pains were unchanged. She also reported difficulty with the range of motion of her left shoulder and unable to do her hair. No improvement after physical therapy. She received a steroid injection of her left shoulder Her exam did not show any evidence of active synovitis and her pains were attributed to degenerative joint disease. No new complaints today Stopped Enbrel 08/2024 Left shoulder improved after injection Requesting right shoulder injection today. Rheumatologic History: dx around 2013 PDN only Enbrel 05/2024 Initial history: This is a 48-year-old female who is transferred from rehab for evaluation of her underlying autoimmune rheumatic conditions. Patient stated that she initially presented with skin rashes on her face. Initially it was thought to be lupus. She was evaluated by b2b appointment setter and had multiple blood tests and was eventually diagnosed with dermatomyositis (? circumstances surrounding the diagnosis). After some time she was diagnosed with rheumatoid arthritis. She was only treated with steroids. She does not recall being on any other immune modulator. She stated that 2 years ago she presented to the hospital with an asthma exacerbation and had to be intubated. She was in a coma for 3 weeks, it took her 8 months to be able to move. She has been on rehab for almost 2 years now due to inability to go up the stairs. She continues to have significant pain in her hands, wrists, ankles. She feels as if her bones are broken. She has had deformity of her feet, look like a clubfoot. She has been evaluated by a neurologist. She also had multiple DVTs, she is on Eliquis. She is unaware of any family history of an autoimmune rheumatic disease. Current Rheumatology Medication(s): Enbrel 50mg SC every week (not taking) [facility] Medical History (Updated 07/28/24 @ 11:09 by Israel Lawler MD) Multiple episodes of deep venous thrombosis Dysphagia, oropharyngeal phase GERD without esophagitis Essential hypertension Insomnia Generalized anxiety disorder Obesity Major depressive disorder, recurrent Post-traumatic stress disorder, chronic Obstructive sleep apnea Severe persistent asthma with status asthmaticus Other dermatomyositis with myopathy Fibromyalgia Drug-induced myopathy Surgical History History of ankle surgery S/P total abdominal hysterectomy History of surgery Family History Mother Asthma Colon cancer Familial adenomatous polyposis Father No problems noted. Other Family history of polyps in the colon Social History Household Members: Family Housing: House Alcohol intake: current Alcohol intake frequency: holidays/special occasions only Patient Tobacco Use Status: Former Tobacco user Review of Systems Const Details: Review of Systems Constitutional: Denies fever, chills, weight loss ENT: Denies vision changes, eye pain or eye redness, dental caries, dry mouth GI: Denies nausea, vomiting, diarrhea, abdominal pain, change in BM Pulm: Denies SOB, NASH, hemoptysis, wheezing Cards: Denies chest pain, palpitations Skin: Denies Raynaud's, rash, nail changes, photosensitivity, [employer]: Denies headaches, weakness, paresthesias, recurrent falls MSK: as per HPI All other systems reviewed and are unremarkable except noted above Physical Exam Vital Signs: Last Vital Signs Pulse 78 03/02/25 15:33 BP 112/74 03/02/25 15:33 Pulse Ox 98 03/02/25 15:33 Oxygen Delivery Method Room Air 03/02/25 15:33 BMI result Body Mass Index 33.6 Vital signs reviewed Physical Examination CONSTITUITIONAL Patient alert and cooperative. Well appearing and in no apparent painful distress Examined in wheel chair HEENT Conjunctiva and sclera clear.?No lymphadenopathy. ? CHEST/RESPIRATORY SYSTEM Normal respiratory effort and able to speak in complete sentences. ?Clear to auscultation bilaterally. ?No crackles, rales, rhonchi, wheezes heard. CARDIAC SYSTEM Regular rate and rhythm. ?S1 and S2 heard no murmurs. ?Radial pulses intact bilaterally MSK Hands: ?Able to make a fist. No synovitis noted to the MCPs, PIPs or DIPs. ?No tenderness to palpation of these joints. Prominent herbeden's nodes Wrists: ?Full range of motion at the wrists without pain. ?No tenderness to palpation or synovitis noted to the wrists. Elbows: Full range of motion without pain. No tenderness, weakness, swelling, increased warmth or erythema. Shoulders: Full range of active range of motion without pain. No tenderness, weakness, swelling, increased warmth or erythema. TTP of the right subacromial bursa Knees: ?Full range of motion. ?No tenderness, swelling, increased warmth or erythema.?No effusion or crepitations Ankles: Full range of motion. ?No tenderness, swelling, increased warmth or erythema.? Feet: ?Negative squeeze test. ?No tenderness to palpation or swelling of the MTPs. Foot drop contractures bilaterally Tender points:?No tenderness to palpation of the bilateral trapezius, supraspinatus, greater trochanters, anterior costochondral junctions, bilateral gluteal areas, bilateral suboccipital muscle insertions SKIN Skin intact without rashes. Office Procedures AMB Joint Injection/Aspiration Joint Injection/Aspiration Details: Procedure was explained to the patient and consent was obtained. ? The area of interest was identified and confirmed with patient. ?This was subsequently cleaned with chlorhexidine x3. ? The area was then anesthetized using ethyl chloride spray. 40 mg Kenalog with 1 cc 1% lidocaine was injected without issue. ?Minimal to no bleeding. ?Patient tolerated procedure. Primary Site: right shoulder Prep: site was prepped using aseptic technique and ethochloride spray was applied Injected: 40 mg of, Kenalog, with 1 mL of, 1% plain lidocaine and in the subcromial space Procedure: The patient tolerated the procedure well Coding 82050 - Large joint Procedure code (CPT) selection complete Office Meds lidocaine (PF) 10 mg/mL (1 %) injection solution Performing Provider: Jacqueline Baker MD Performing Location: [facility] [facility] Administered by: Jacqueline Baker MD on 03/02/25 16:11 Dose Route Admin Location Dispensed Lot Number Expiration Date [facility] [employer] Teacher 1 mL Infiltration right shoudler 2 mL [id number] 11/20/26 41880-884-00 [employer] Synvisc-One 48 mg/6 mL intra-articular syringe Performing Provider: Jacqueline Baker MD Performing Location: [facility] [place] [facility] Documented (not given) by: Jacqueline Baker MD on 03/02/25 16:11 Reason Not Given: No Longer Necessary Kenalog 40 mg/mL suspension for injection Performing Provider: Jacqueline Baker MD Performing Location: [facility] [place] [facility] Administered by: Jacqueline Baker MD on 03/02/25 16:11 Dose Route Admin Location Dispensed Lot Number Expiration Date [facility] [employer] Teacher 40 mg intrabursal right shoulder 1 mL [id number] 12/21/25 [address]-7 [employer] Results Reviewed Results Reviewed: Laboratory Tests 03/02/24 08:35 WBC 11.1 H RBC 4.17 L Hgb 8.8 L Hct 30.2 L Plt Count 391 ESR 40 H Sodium 140 Potassium 4.0 Chloride 101 Carbon Dioxide 30 H BUN 12 Creatinine 0.75 AST 19 ALT 18 Total Creatine Kinase 96 C-Reactive Protein 1.82 H Aldolase 8.3 H Laboratory Tests 03/02/24 08:35 Rheumatoid Factor < 13.0 Cycl Citrul Peptide IgG <16 FRANK Screen NEGATIVE MACEY-1 Antibody <11 EJ Antibody <11 OJ Antibody <11 Mi-2-Alpha Ab <11 Mi-2-Beta Ab <11 NXP-2 Ab <11 PL-7 Antibody <11 PL-12 Antibody <11 SRP Ab <11 MDA5 Ab <11 Myos P155/140 TIF1-g Ab <11 SS-A/Ro Antibody <1.0 NEG SS-B/La Antibody <1.0 NEG Sm (Guo) Antibody <1.0 NEG U1 snRNA A Antibody <11 U1 snRNA C Antibody <11 U1 snRNA 70kD Antibody <11 SM/CARPET TILE LAYER IgG Antibody <1.0 NEG Scl-70 Scleroderma Ab <11 A-PM Scleroderma 75 Ab <11 A-PM Scleroderma 100 Ab <11 Double Strand DNA Ab <1 Anti-ds DNA (Crithidia) Negative Th/To CARPET TILE LAYER Ab <11 U3-CARPET TILE LAYER (Fibrillarin) Ab <11 RNA Polymerase III RP11 Ab <11 RNA Polymerase III RP155 Ab <11 Centromere B Antibody <11 Centromere Protein A Ab <11 HMGCR IgG Antibody <2 NT5C1A IgG Antibody <5 Beta-2-GPI IgG Ab <2.0 Beta-2-GPI IgA Ab <2.0 Beta-2-GPI IgM Ab 3.0 Anti-Cardiolipin IgG Ab <2.0 Anti-Cardiolipin IgM Ab 2.6 Complement C3 200 H Complement C4 29 Assessment & Plan Assessment & Plan (1) Seronegative rheumatoid arthritis: Comment: dx around 2013 PDN only Enbrel 05/2024 Code(s): M06.00 - Rheumatoid arthritis without rheumatoid factor, unspecified site Category: Medical Plan: #Seronegative RA Patient is a 49-year-old female with seronegative rheumatoid arthritis here today for follow up. Not currently on any immunosuppression and joints without any evidence of synovitis. We will continue to monitor off immunosuppression Plan - Monitor off immunosuppression - RTC 4 months - Labs before visit: CBC, CMP, ESR, CRP, Hepatitis panel and T spot (2) Other dermatomyositis with myopathy: Code(s): M33.12 - Other dermatomyositis with myopathy Category: Medical Plan: #Dermatomyositis Unclear about the circumstances surrounding the diagnosis for dermatomyositis. No evidence of muscle weakness on examination. She does have overall deconditioning due to being in a wheelchair and her prolonged footdrop. We will continue to monitor off immunosuppression Plan - Check CK and aldolase at next blood draw (3) Subacromial bursitis of right shoulder joint: Code(s): M75.51 - Bursitis of right shoulder Plan: #Subacromial bursitis of right shoulder Status post steroid injection today. Plan I spent 30 minutes reviewing the record and labs, taking a history, examining the patient, discussing the treatment plan, ordering diagnostic work up and documenting in the medical record Orders: Orders Aldolase 4 Months M06.00 - Rheumatoid arthritis without rheumatoid factor, unspecified site Complete Blood Count Auto Diff 4 Months M06.00 - Rheumatoid arthritis without rheumatoid factor, unspecified site Comprehensive Met. Panel 4 Months M06.00 - Rheumatoid arthritis without rheumatoid factor, unspecified site C Reactive Protein 4 Months M06.00 - Rheumatoid arthritis without rheumatoid factor, unspecified site Hepatitis A,B,C Profile 4 Months M06.00 - Rheumatoid arthritis without rheumatoid factor, unspecified site T Spot TB 4 Months M06.00 - Rheumatoid arthritis without rheumatoid factor, unspecified site AMB Joint Injection/Aspiration Today M75.51 - Bursitis of right shoulder Creatine Kinase Total 4 Months M06.00 - Rheumatoid arthritis without rheumatoid factor, unspecified site Erythrocyte Sedimentation Rate 4 Months M06.00 - Rheumatoid arthritis without rheumatoid factor, unspecified site Medications: New lidocaine (PF) 1 mL Infiltration ONCE 2 mL 0RF M75.51 - Bursitis of right shoulder Synvisc-One (hylan g-f 20) 48 mg (6 mL) intra-articular ONCE 6 mL 0RF NS M75.51 - Bursitis of right shoulder Kenalog (triamcinolone acetonide) 40 mg intrabursal ONCE 1 mL 0RF NS M75.51 - Bursitis of right shoulder Coding Level of Care Code Est Pt Level 4 (82954) Complex EM visit Add On G2211 Diagnoses Seronegative rheumatoid arthritis M06.00 Other dermatomyositis with myopathy M33.12 Subacromial bursitis of right shoulder joint M75.51 CPT Codes Coding - 22233 Large joint: 62848 - Large joint ([id number])
[2025-03-02 15:33] VITALS: BP 112/74; PULSE 78; O2SAT 98; BMI 33.6
--- OUTSIDE RECORDS SUMMARY | 2025-03-02 17:41 | XMS_ITS | Data Portability ---
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 Fine Diamond Dies Name Role Phone [facility] OTHER [facility] OTP OTHER [phone] [facility] Primary Care Provider Assessment Encounter Date Assessment Date Assessment LastModified by Organization Details LastModified Time 08/26/2023 08/26/2023 labs 08/21: Na 139-k 4.9-Bun 18- Cr 0.5- WBC 15.3- hgb 7.9-29.3-plt 533 Not available 08/27/2023 08:09:05 09/02/2023 09/02/2023 labs 08/21: Na 139-k 4.9-Bun 18- Cr 0.5- WBC 15.3- hgb 7.9-29.3-plt 533 Not available 09/02/2023 16:14:52 10/17/2023 10/17/2023 labs 08/21: Na 139-k 4.9-Bun 18- Cr 0.5- WBC 15.3- hgb 7.9-29.3-plt 533 [email or web address] Not available 10/20/2023 05:55:50 Plan of Treatment Reminders Order Date Submit Date Provider Last Modified By Organization Details Last Modified Time Details Appointments None record ed. Lab None record ed. Referral None record ed. Procedures None record ed. Surgeries None record ed. Imaging None record ed. Medication Orders None record ed. Patient TargetsNo targets recorded. Patient InstructionsNo instructions recorded. Reason for Referral None Reported. Problems Name Problem SNOMED Code Status Onset Date Resolution Date Notes Provider Name and Address Organization Details Recorded Time Migraine 17471279 Active 2021 Not Available [facility] 3 22:49:26 Dermatomyosit is 128072219 Active 2021 Not Available [facility] 3 22:49:26 Rheumatoid arthritis 53126936 Active 2021 Not Available [facility] 3 22:49:26 Gastroesophag eal reflux disease 225296214 Active 2021 Not Available [facility] 3 22:49:26 Major depressive disorder 178969808 Active 2021 Not Available [facility] 3 22:49:26 Fibromyalgia 716749876 Active 2021 Not Available [facility] 3 22:49:26 Asthma 164444438 Active 2021 Not Available [facility] 3 22:49:26 Substance abuse 25002029 Active 2021 Not Available [facility] 3 22:49:26 Deep venous thrombosis 918830418 Active 2021 Not Available [facility] 3 22:49:26 Obstructive sleep apnea syndrome 21230235 Active 2021 Not Available [facility] 3 22:49:26 Dysphagia 75098749 Active 2021 Not Available [facility] 3 22:49:26 Anemia 324208983 Active 2021 Not Available [facility] 3 22:49:26 Hypertensive disorder 98191188 Active 2021 Not Available [facility] 3 22:49:26 Anxiety 63537926 Active 2021 Not Available [facility] 3 22:49:26 Pruritic disorder 768655651 Active 2021 Not Available [facility] 3 22:49:26 Insomnia 436796186 Active 2022 Not Available [facility] 3 22:49:26 Closed fracture distal tibia 996912236 Active 2022 Leilani Lubin MD [address] [place] [address], [address], [place], [address] , [facility] 3 12:14:53 Acute respiratory failure 58687638 Active [address], [facility] [address], [place], [address] , [facility] 3 22:21:43 Pneumonia 784312725 Active [address], [facility] [address], [place], [address] , [facility] 3 22:24:47 Notes:Some problems listed i n Documents: #[id number], #[id number], #[id number] could not be added to this patient's chart. Please review these documents and add these problems to the patient's chart manually as needed. Problem Notes None recorded. Medical Equipment None Reported. Allergies Allergen ID Allergen Name Allergen Category Reaction Reaction Severity Criticality Documentation Date Start Date Code Code System Note Provider Name and Address Organization Details Recorded Time 06438 shellfish derived food,medi cation anaphylax is moderate Not available 06/10/2022 79548 UNK Not Available [facility] 2 00:25:37 91724 kiwi fruit extract food Not available Not available Not available 06/28/2022 29027 01 RxNorm RIAZ GOYAL PA-C [address] [facility] [address], [place], [address], [facility] 2 14:23:53 Medications Name Sig Start Date Stop Date Status Note LastModified by Organization Details LastModified Time oxycodone 5 mg tablet Take 2 tablets every 6 hours by oral route as needed, for pain. 023 active Not Available Not Available Not Avai lable pregabalin 150 mg capsule Take 1 capsule 3 times a day by oral route, for fibromyal paul. 023 active Not Available Not Available Not Avai lable Vitals Date Recorded Body height Provider Name an d Address Organization Details Last Updated DateTime 08/22/2023 154.94 cm AYDEE FLETCHER [address] [facility], [address], [place], [address], [facility] 08/22/2023 22:18:00 Date Recorded Body height Provider Name an d Address Organization Details Last Updated DateTime 08/26/2023 154.94 cm AYDEE FLETCHER [address] [facility], [address], [place], [address], [employer] [facility] 08/27/2023 07:38:19 Date Recorded Body height Provider Name an d Address Organization Details Last Updated DateTime 09/02/2023 154.94 cm AYDEE FLETCHER [address] [facility], [address], [place], [address], [employer] [facility] 09/02/2023 16:12:06 Social History Question Answer Notes LastModified by [employer] Details LastModified Time Tobacco Smoking Status Former Smoker smoked a pack every week or 2, quit 2020 Leilani Lubin MD [address] [facility], [address], [place], [address], [employer] 06/10/2022 18:32:55 Do You Have An Advance Directive? Yes Full Code; All Interventions [email or web address] Information not available 07/17/2022 What Is Your Code Status? Full Code [email or web address] Information not available 07/17/2022 Legal Guardian? No Information not available 06/10/2022 Do You Have A Medical Power Of Centerless Grinder Operator? Yes Valid Copy On Chart, Not Invoked [email or web address] Information not available 06/28/2022 What Was The Date Of Your Most Recent Tobacco Screening? 06/10/2022 Information not available 06/10/2022 Do You Have An Out Of Hospital DNR? No Information not available 06/10/2022 Has Tobacco Cessation Counseling Been Provided? No N/a As Pt No Longer Smokes Information not available 06/10/2022 How Many Years Have You Smoked Tobacco? 30 Information not available 06/10/2022 Sex: Unknown Functional Status Question Answer Note LastModified by Organizat ion Details LastModified Time Do you use any illicit or recreational drugs? No snorted heroin, never IV, now on methadone x 1 yr. Information not available 06/10/2022 Do you or have you ever used any other forms of tobacco or nicotine? No Information not available 06/10/2022 What is your level of alcohol consumption? None [email or web address] Information not available 06/08/2022 Mental Status None recorded. Family History Relationship Description Onset Age of this Age Resolved Age Notes LastModified by Organization Details LastModified Time Mother Familial multiple polyposis syndrome [email or web address] Not available 2021 14:34:09 Mother Malignant tumor of colon 45 [email or web address] Not available 2021 14:55:02 Mother Essential hypertension [email or web address] Not available 03/2022 14:55:38 Father Malignant tumor of testis [email or web address] Not available 2021 14:55:19 Father Leukemia [email or web address] Not availabl e 06/28/2022 14:55:29 Medical History No medical history recorded. Gynecological HistoryNo gynecological history recorded. Obstetrics History GPAL:G 0 P 0 0 0 0 Past Encounters Encounter ID Performer Location Encounter Start Date Encounter Closed Date Diagnosis/Indication Diagnosis SNOMED-CT Code Diagnosis ICD10 Code Diagnosis Note [id number] KIRILL Carlisle [facility] on [address] [place] [address] 06/08/2022 09:22:03 06/14/2022 15:42:19 Asthma 029669649 J45.909 As per HPI. With severe exacerbati on. On fluticason e/salmeter ol, albuterol, singulair. PT/OT to maximize function. Deep venou s thrombosis 360989163 I82.409 As per HPI. On eliquis. Anemia 308589355 D64.9 With GI bleed in acute care. Likely in setting of critical illness. Follow labs. Dermatomyositis 86381038 8 M33.13 Added to hx. Dysphagia 44882350 R13.1 0 Dysphagia level 3 diet. Fibromyalgia 116774693 M 79.7 On duloxetine . Monitor. Gastroesop hageal reflux disease 266110264 K21.9 Monitor for symptoms. Hypertensive disorder 38 828016 I10 No med treatment. Follow BP and labs. Major depr essive disorder 648047124 F32.9 On duloxetine . Psych consult PRN. Migraine 69593226 G43.90 9 Added to hx. Rheumatoid arthritis 698 36803 M06.9 Added to hx. Substance abuse 30471664 F19.10 On methadone. Obstructiv e sleep apnea syndrome 97343900 G47.33 Sleep study done on 05/27- found to have mild TRI, recs for further outpt study and supplement al O2 PRN. Anxiety 97607817 F41.9 On hydroxyzin e, duloxetine . Psych PRN. [id number] Leilani Lubin MD [facility] on [address] [place] [address] 06/10/2022 18:21:15 06/21/2022 15:45:23 Asthma 920982127 J45.50 S/P severe exacerbati on.Will schedule albuterol nebs BID and continue nebs or inhaler q 4 hrs prn.Contin ue Advair 100/50 BID and singulair 10 mg qd. Deep venou s thrombosis 499572412 I82.492 Continue apixaban 5 mg BID for 3-6 months, depending on pt's progress with mobility.M onitor for bleeding. Anemia 517314702 D64.89 Improving and/or stable since 05/27 Labs to be drawn tomorrow.M onitor. Dermatomyositis 24032886 8 M33.13 In hx.Continu e sxatic tx. Dysphagia 76016943 R13.1 9 Continue modified diet.Tatiana nue CAPACITY PLANNING ANALYST interventi ons to help pt regain function.M onitor for aspiration . Fibromyalgia 425808864 M 79.7 Meds as above.Disha tor sxs. Gastroesop hageal reflux disease 484566478 K21.9 PPI stopped inpt.Monit or sxs.Tx f recurrent sxs. Hypertensive disorder 38 774912 I10 BP improved inpt after extubation , was bale to be weaned off meds.Tatiana nue to monitor BP and labs. Major depr essive disorder 529981337 F33.1 Mood good today.Cont inue duloxetine 90 mg qd.Monitor mood.Consu lt psych prn Migraine 47797824 G43.80 9 Hx of.Monitor for sxs and tx prn. Rheumatoid arthritis 698 50608 M06.89 No current tx.Continu e APAP prn.F/U with rheum as planned. Substance abuse 86664725 F19.10 Continue methadone 105 mg qd.F/U with clinic as planned. Obstructiv e sleep apnea syndrome 11695465 G47.33 Sleep study done on 05/27- found to have mild TRI, recs for further outpt study and supplement al O2 PRN.Will have resp. therap assess pt. here. 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 Eventually gait training.C ontinue fall precaution s.Monitor for safety. Pruritic disorder 352421 002 L29.8 Will start diphenhydr banks 50 mg q 4 hrs prn.Monito r for oversedati on as pt is also on hydroxyzin e. 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 coli UTINKDABas ed on MICs, will start Levaquin 250 mg po daily x 3 days-benef its of abx outweigh risks of non-treatm ent in this patientPro biotic bid x 6 daysMonito r and f/u prn. [id number] RIAZ GOYAL PA-C [facility] on [address] [place] [address] 06/20/2022 19:31:57 07/08/2022 15:21:32 Chronic pain syndrome 434634307 G89.4 Consider changing Cymbalta from 90 mg po q am to 60 mg po q am and 30 mg po q 1700Contin ue prn APAP-hesit ant to schedule due to hx transamini tisAdd gabapentin 100 mg po tid and 100 mg po q 4 h prn pain-will target pain as well as pruritus associated with dermatomyo sitis-ok to give any time relative to scheduled dose-titra te to comfort Weight loss 62815010 R63 .4 One of the weights could not possibly be validNeed reweighFol low weightsRD also following Dermatomyositis 49637626 8 M33.90 Has topicals and orals for management of pruritus [id number] RIAZ GOYAL PA-C [facility] on [address] [place] [phone] 06/21/2022 21:07:26 07/08/2022 15:23:19 Chronic pain syndrome 581249944 G89.4 change Cymbalta from 90 mg po q am to 60 mg po q am and 30 mg po 1700-can titrate evening dose to 60 mg, which would be max total daily dose of 120 mgOther recent med changes notedPhysi atry consultfol low clinically [id number] RIAZ GOYAL PA-C [facility] on [address] [place] [address] 06/28/2022 15:40:18 07/08/2022 16:08:12 Severe persistent allergic asthma uncontrolled 0775903174 3068444 J45.51 Increase Advair from 100-50 to 500-50 mcg 1 inhalation q 12 h-rinse mouth after useConside r adding LAMAOk to continue scheduled Albuterol nebs despite also being on LABA with Advair since hx severe allergic asthma with hx status asthmaticu sAdd Zyrtec 10 mg po qhs scheduledA dd Zyrtec 10 mg po q 8 h prn itching/al lergy symptoms-o k to give anytime relative to scheduled dose-NTE 4 doses per 24 hD/c prn BenadrylFo llow clinically Consider allergy & immunology referral Dermatomyositis 02141936 8 M33.90 Zyrtec as above for itchingInc rease gabapentin from 300 mg po tid to 600 mg po tidAdd gabapentin 100 mg po q 4 h prn pain-ok to give anytime relative to scheduled dose-NTE 3600 mg/24 h total gabapentin Gabapentin should help with neuropathi c itch as well as fibromyalg ia Anxiety 48927264 F41.9 Continue hydroxyzin e 50 mg po q 6 h prn anxiety x 6 months since has been effective- ok despite overlap therapy with Zyrtec since antagonize s both central and peripheral H1 receptors and Zyrtec only antagonize s peripheral H1 receptors, thereby being ineffectiv e for anxiety management Fibromyalgia 516343405 M 79.7 Gabapentin as above-disha tor for edemaConsu lt Dr. Lisa Santos, physiatris t, for chronic pain management -she is aware of consultCon ambulance driver increasing 1700 Cymbalta from 30 to 60 mg [id number] RIAZ GOYAL PA-C [facility] on [address] [place] [address] 07/04/2022 12:28:36 07/10/2022 13:59:18 Chronic pain syndrome 361453457 G89.4 Increase Cymbalta from 60/30 to 60/60Cross taper-titr ate wes to pregaba-cu rrently on gabapentin 600 mg po tid (increased from 300 tid 6 days ago)-will decrease back to 300 mg po tid once pregabalin arrives from pharmacy and then taper quickly and d/c prn doses since has not really been on for that long-start pregabalin 50 mg po tid x 5 days then 100 mg po tidscripts for pregabalin 50 mg #15 no refills and 100 mg #30 with 5 refills given to nursePhysi vernell consult with Dr. Santos (she is aware) Insomnia c o-occurrent and due to medical condition 8774112743 9105 G47.01 Add prazosin 2 mg po qhs prn insomnia secondary to nightmares /PTSD if scheduled dose ineffectiv e x 14 days then review with provider to determine ongoing needIncrea se Melatonin from 3 mg po qhs to 6 mg po qhs Anxiety 66899730 F41.9 Change prn hydroxyzin e from 50 mg po q 6 h to q 4 h prn anxiety x 14 days then review with provider to determine ongoing need [id number] Leilani Luibn MD [facility] on [address] [place] [phone] 07/08/2022 18:39:20 07/10/2022 14:26:04 Gastroesophageal reflux disease 112512072 K21.9 Will restart omeprazole 20 mg qdMonitor improvemen t.Deescala te to famotidine when sxs relieved. Diarrhea 71477925 R19.8 Will send spec, since large amt. of diarrhea in bedpan. Check for c. diff (doubt) and culture.Wi ll start imodium 2 tabs now and then 1 tab after each loose stool, not to exceed 8 tabs/day.M onitor sxs. [id number] RIAZ GOYAL PA-C [facility] on [address] [place] [phone] 07/10/2022 17:30:33 07/23/2022 14:56:16 Weight loss 09047692 R63.4 Highly doubt the initial weight was valid-Subs equent weights more similar Chronic pain syndrome 37 8866593 G89.4 multifacto rialUnderg oing cross-tape r-titratio n wes to pregabaOth er meds on boardSeein g physiatris tFollow clinically Severe per sistent allergic asthma uncontrolled 3280164514 2852056 J45.51 Improved with increase in Advair dose and with addition of ZyrtecCont inue scheduled and prn nebsHas new intake at [facility] [place] 08/02/22-w ill need to hold ALL antihistam josiah x 5 days leading up to appointmen t so as not to interfere with allergy skin testing-wi ll need to sub something for anxiety while hydroxyzin e on hold during that time Posttrauma tic stress disorder 30515544 F43.10 prn Prazosin has been effective when used -- will renew x 6 months [id number] RIAZ GOYAL PA-C [facility] on [address] [place] [address] 07/11/2022 17:27:56 07/23/2022 14:59:36 Nausea, vomiting and diarrhea 3834590 R11.2 Trial decrease 1700 Cymbalta from 60 back to 30 mg since may be the cause of the GI sxCBCD, CMP, Lipase, Mg in amOk to continue prn Zofran despite increased risk of serotonin syndrome with SNRIContin ue PPI for nowFollow clinically [id number] RIAZ GOYAL PA-C [facility] on [address] [place] [address] 07/12/2022 14:04:59 07/23/2022 15:12:40 Nausea, vomiting and diarrhea 8831332 R11.2 Clinically improvedNo transamini tis or pancreatit is on labsWBC improvedst ool studies negativeMg low-end of therapeuti cKeep Cymbalta afternoon dose at 30 mg for now but consider re-challen ge to 60 mg in the futureFoll ow clinically [id number] RIAZ GOYAL PA-C [facility] on [address] [place] [address] 3 07/15/2022 15:00:23 07/30/2022 15:15:42 Chronic pain syndrome 816804778 G89.4 multifacto rialRecent med adjustment sPT/OTPhys iatry Dysuria 35442761 R30.0 No UTIPush fluidsf/u prn [id number] RIAZ GOYAL PA-C [facility] on [address] [place] [phone] 07/24/2022 13:35:44 08/09/2022 13:47:02 Chronic pain syndrome 238651087 G89.4 Increase Lyrica from 100 mg po tid to 150 mg po tid-script for #90 with 5 refills given to nurseResto re afternoon Cymbalta from 30 to 60 mg-continu e 60 mg po q am Pain in right hand 74673 98520 68324 M79.641 Non-urgent x-ray R hand and wrist, 2-v each r/o 1st MCP fx/disloca tion Diarrhea 03322202 R19.7 Adjust Imodium to 2 mg po q 3 h prn diarrhea Posttrauma tic stress disorder 35790795 F43.10 Increase Prazosin to 4 mg po qhs Anxiety 40350985 F41.9 Ativan 0.25 mg po q 4 h prn anxiety from 110/5-11/1 2/22 while hydroxyzin e on hold-scrip t for 0.5 mg #42 half-tabs, no refills given to nurse [id number] RIAZ GOYAL PA-C [facility] on [address] [place] [address] 07/26/2022 12:00:52 08/12/2022 14:21:36 Pain of right wrist 3308463642 78461 M25.531 X-rays non-acuteO TPhysiatry [id number] RIAZ GOYAL PA-C [facility] on [address] [place] [address] 3 08/02/2022 12:09:52 08/05/2022 12:48:27 Severe persistent allergic asthma uncontrolled 2604341686 2573152 J45.51 Add Incruse Ellipta 62.5 mcg 1 inhalation q am-may need to sub alternate LAMA depending on insuranceA dd Flonase Sensimist- may sub regular Flonase if necessaryZ yrtec and hydroxyzin e taken off hold since completed allergy testingPt contemplat ing allergy shots/immu notherapy and will coordinate that with allergistR RT also following [id number] Fina Higgins MD [facility] on [address] [place] [address] 08/07/2022 05:31:12 08/12/2022 15:05:24 Asthma 470754684 J45.50 Incruse Ellipta 62.5: one inhalation dailymonte lukast 10 mg dailyalbut tarah HFA: 2 puf q6h prnalbuter ol per nebulizer bid and q4h prnAdvair 500-50: one puff bidcetriri zine 10 mg daily and q8h prnconside ring allergy shots/immu notherapyf u allergistw ill monitor Substance abuse 49799090 F19.10 methadone 105 mg dailyfu methadone clinic Gastroesop hageal reflux disease 192040453 K21.9 omeprazole 20 mg dailywill monitor History of deep vein thrombosis 590767223 Z86.718 apixaban 5 mg bidwill monitor Mixed anxi ety and depressive disorder 006122765 F41.8 duloxetine 60 mg bidprazosi n 4 mg at hspregabal in 150 mg tidhydroxy zine 50 mg q4h prnwill monitor Fibromyalgia 627772349 M 79.7 pregabalin 150 mg tidduloxet ine 60 mg bidAPAP 650 mg q6h prnPT/OT prnwill monitor [id number] Leilani Lubin MD [facility] on [address] [place] [address] 08/12/2022 21:16:58 08/20/2022 09:27:22 Cough 64743160 R05.1 Will start robitussin 10 ml q 4 hrs prn and monitor. Asthma 342615082 J45.50 Continue Incruse Ellipta 62.5: one inhalation qd, montelukas t 10 mg qd, albuterol per nebulizer BID and q4h prn, Advair 500-50: one puff BID, cetirizine 10 mg qd and q8h prn, and albuterol HFA: 2 puffs q6h prnConside ring allergy shots/immu notherapyF /U with allergistM onitor resp status. [id number] AYDEE Davalos [facility] on [address] [place] [address] 08/13/2022 15:30:52 08/20/2022 09:57:38 Muscle rigidity 70445469 R29.898 trial baclofen 5 mg tid for muscle stiffnessc ontinue PT OT Asthma 005556835 J45.50 Incruse Ellipta 62.5 mcg qdmonteluk ast 10 mg qdalbutero l HFA 2 puf q6h prnalbuter ol per nebulizer bid and q4h prnAdvair 500-50 mcg 1 puff bidcetiriz ine 10 mg qd and q8h prnconside ring allergy shots/immu notherapyf /u basic acoustic analyst Substance abuse 26137697 F19.10 methadone 105 mg qdf/u methadone clinic History of deep vein thrombosis 787988458 Z86.718 apixaban 5 mg bidmonitor for bleeding Mixed anxi ety and depressive disorder 945846254 F41.8 duloxetine 60 mg bidprazosi n 4 mg at hspregabal in 150 mg tidhydroxy zine 50 mg q4h prnmonitor mood Fibromyalgia 811968198 M 79.7 pregabalin 150 mg tidduloxet ine 60 mg bidAPAP 650 mg q6h prnPT/OT prnmonitor pain relief [id number] AYDEE Davalos [facility] on [address] [place] [address] 3 08/19/2022 10:07:16 08/21/2022 20:02:31 Pain in right hand 8038743541 29559 M79.641 xray of right hand 2/2 pain, decreased ROMf/u after results obtained Muscle rigidity 15251984 R29.898 continue baclofen 5 mg tid for muscle stiffnessc ontinue PT OT Asthma 879254409 J45.50 Incruse Ellipta 62.5 mcg qdmonteluk ast 10 mg qdalbutero l HFA 2 puf q6h prnalbuter ol per nebulizer bid and q4h prnAdvair 500-50 mcg 1 puff bidcetiriz ine 10 mg qd and q8h prnconside ring allergy shots/immu notherapyf /u basic acoustic analyst Substance abuse 07985419 F19.10 methadone 105 mg qdf/u methadone clinic History of deep vein thrombosis 676716237 Z86.718 apixaban 5 mg bidmonitor for bleeding Mixed anxi ety and depressive disorder 784643850 F41.8 duloxetine 60 mg bidprazosi n 4 mg qhspregaba rochelle 150 mg tidhydroxy zine 50 mg q4h prnmonitor mood Fibromyalgia 032069491 M 79.7 pregabalin 150 mg tidduloxet ine 60 mg bidAPAP 650 mg q6h prncontinu e PT/OTmonit or pain relief [id number] AYDEE Davalos [facility] on [address] [place] [address] 3 08/27/2022 09:12:49 08/29/2022 15:15:12 Pain in right hand [id number] 27875 M79.641 xray of right hand 2/2 pain, decreased ROM showed arthritisO T following pt and have ordered a right hand splint Muscle rigidity 67146962 R29.898 increase baclofen to 10 mg tid for muscle stiffnessc ontinue PT OT Asthma 802998602 J45.50 stableIncr use Ellipta 62.5 mcg qdmonteluk ast 10 mg qdalbutero l HFA 2 puf q6h prnalbuter ol per nebulizer bid and q4h prnAdvair 500-50 mcg 1 puff bidcetiriz ine 10 mg qd and q8h prnconside ring allergy shots/immu notherapyf /u basic acoustic analyst Substance abuse 31567507 F19.10 methadone 105 mg qdf/u methadone clinic History of deep vein thrombosis 156743393 Z86.718 apixaban 5 mg bidmonitor for bleeding Mixed anxi ety and depressive disorder 962692967 F41.8 stabledulo xetine 60 mg bidprazosi n 4 mg qhspregaba rochelle 150 mg tidhydroxy zine 50 mg q4h prnmonitor mood Fibromyalgia 202331872 M 79.7 pregabalin 150 mg tidduloxet ine 60 mg bidAPAP 650 mg q6h prncontinu e PT/OTmonit or pain relief [id number] AYDEE Davalos [facility] on [address] [place] [address] [id number] 3 09/10/2022 14:38:55 09/12/2022 14:13:02 Acquired plantar-flexed forefoot 298600229 M21.6X9 refer to neurologis t for eval of chronicall y plantar flexed feet in spite of PT OT and baclofen 10 mg tidmonitor and continue PT OT [id number] AYDEE Davalos [facility] on [address] [place] [address] [phone] 3 2022 12:11:17 09/25/2022 15:26:44 Familial multiple polyposis syndrome 19044407 D12.6 refer to GI for hx of familial multiple polyposis syndrome with hx of J pouch creation, needing annual colonoscop y and upper endoscopy not done since prior to November 2019with chronic diarrhea add imodium 2 mg 1 bid and continue prn q 3 hrs dosingmoni tor for worsening sxs Muscle rigidity 36039875 R29.898 baclofen 10 mg tid for muscle stiffnessc ontinue PT OTreferred to neuro for eval Asthma 793340128 J45.50 stableIncr use Ellipta 62.5 mcg qdmonteluk ast 10 mg qdalbutero l HFA 2 puf q6h prnalbuter ol per nebulizer bid and q4h prnAdvair 500-50 mcg 1 puff bidcetiriz ine 10 mg qd and q8h prnconside ring allergy shots/immu notherapyf /u basic acoustic analyst Substance abuse 87534661 F19.10 methadone 105 mg qdf/u methadone clinic History of deep vein thrombosis 916845232 Z86.718 apixaban 5 mg bidmonitor for bleeding Mixed anxi ety and depressive disorder 326826643 F41.8 per HDBH add trazodone 25 mg qhs and 25 mg qd prn anxiety x 14 days then re-evaldul oxetine 60 mg bidprazosi n 4 mg qhspregaba rochelle 150 mg tidhydroxy zine 50 mg q4h prnmonitor mood Fibromyalgia 190681279 M 79.7 pregabalin 150 mg tidduloxet ine 60 mg bidAPAP 650 mg q6h prncontinu e PT/OTmonit or pain relief Obstructiv e sleep apnea syndrome 07153480 G47.33 per DC summary from [facility] pt was on cpap and bipap while in [facility] will look into getting cpap machine [id number] AYDEE Davalos [facility] on [address] [place] [address] 93046-525 3 09/30/2022 12:16:25 10/01/2022 17:41:11 Nightmares associated with chronic post-traumatic stress disorder 607867911 F43.12 increase prazosin to 6 mg qhsmonitor for effect Visual impairment 361802 003 H54.7 will have staff call health drive to find out when she will receive her glassess Acquired plantar-flexed forefoot 709885803 M21.6X9 referred to neurologis t for eval of chronicall y plantar flexed feet in spite of PT OT and baclofen 10 mg tid and chronic spasms in left legmonitor and continue PT OT Donal Camacho MD [facility] on [address] [place] [address] [phone] 3 10/09/2022 10:57:02 10/11/2022 15:55:18 Nightmares associated with chronic post-traumatic stress disorder 423490718 F43.12 improved on increased dose of med, continuepr azosin to 6 mg qhsmonitor for effect and need to titrate Insomnia 452751110 G47.0 9 restart trazadone 25 mg qhsreasses s in 4 weeksdiscu ssed with nursing [id number] AYDEE Davalos [facility] on [address] [place] [address] 74844-948 3 10/17/2022 10:16:24 10/21/2022 13:49:02 Pruritic disorder 622745476 L29.8 continue zyrtec 10 mg qd and q 8 hrs prnadd benadryl 25 mg 1 q 4 hrs prn itching, allergic reactionmo nitor for allergic reaction Anxiety 90453091 F41.9 has hydroxyzin e order that will be discontinu ed as pt will now have benadryl as abovemonit or mood [id number] AYDEE Davalos [facility] on [address] [place] [address] [phone] 3 10/21/2022 09:38:48 10/23/2022 12:24:20 Pruritic disorder 361535451 L29.8 continue zyrtec 10 mg qd and q 8 hrs prndc benadryl 25 mg 1 q 4 hrs prnmonitor for allergic reaction Anxiety 49700790 F41.9 resume hydroxyzin e 50 mg 1 q 6 hrs prn anxiety, itchingmon itor mood [id number] Donal Camacho MD [facility] on [address] [place] [address] [phone] 3 10/23/2022 12:08:03 10/25/2022 15:43:05 Pain in lower limb 09076823 M79.604 bilateral lower extremity neuropathi c paineval by neuro s/p EMG awaiting results with f/u in placediscu ssed with therapy as patient unable to stand however can self transfer to wheelchair continue supportive carepain currently well controlled Nightmares associated with chronic post-traumatic stress disorder 632255844 F43.12 stable on prazosin to 6 mg qhsmonitor for effect and need to titrate Deep venou s thrombosis 521863529 I82.492 eliquis 5 mg bid continued Substance abuse 20569395 F19.10 methadone 105 mg qdcontinue d [id number] AYDEE Davalos [facility] on [address] [place] [address] [id number] 3 11/04/2022 15:37:36 11/06/2022 09:42:26 Migraine without aura 53063698 G43.009 ibuprofen 600 gm q 6 hrs prn headache -give with foodmonito r for worsening pain, change in symptoms [id number] Donal Camacho MD [facility] on [address] [place] [address] 91360-026 3 11/20/2022 16:00:28 11/22/2022 12:57:32 Closed fracture distal tibia 943809670 S82.392D see HPIgiven minimal informatio n available will keep non weight bearing until can determine ortho recsmonito r for pain control transferre d on oxycodone 2.5-5 mg q 6 prntherapy to eval and treatattem pted to retrieve from [facility] however no informatio n availablea gain call out to have summary sent to facilitywi ll recheck cbc Gastrointe stinal hemorrhage 54488150 K92.1 hospitaliz ation complicate d by Nichole eval by GI now s/p EGD and colonoscop y with results pendingmon itor cbc and need for iron studies vs transfusio nf/u with GI in place Deep venou s thrombosis 971653117 I82.492 eliquis 5 mg bid continueds ee above with recent fx and GI bleed Substance abuse 34525692 F19.10 methadone 105 mg qdcontinue d with above addition of oxycodone Gastroesop hageal reflux disease 404751762 K21.9 see abovemaint ained on omeprazole 20 mg qdawaiting GI recsmonito r for sx YADEE Davalos [facility] on [address] [place] [address] [phone] 3 11/28/2022 10:02:21 12/03/2022 19:20:22 Familial multiple polyposis syndrome 06061149 D12.6 pt with hx of familial multiple polyposis syndrome with hx of J pouch creationup per endoscopy and colonoscop y done on 11/18/22wil l need f/u with Dr Naman MARIA to go over results and further planof note pt - accding to reports for procedures pt will need f/u colonoscop y in 6 months and f/u to schedule serial polypectom ies for gastric and duodenal polypswith chronic diarrhea continue imodium 2 mg 1 bid and continue prn q 3 hrs dosingmoni tor for worsening sxs Anemia of chronic disease 766673762 D63.8 no dc summary availablep t notes iron transfusio n while in ptcbc, cmp on 12/02/22 Closed fra cture distal tibia 915852430 S82.392D continue oxycodone 2.5 mg q 6 prncontinu e PT OTwill need f/u with ortho and need dc summary to determine weight bearing statusagai n call out to have summary sent to facility Gastrointe stinal hemorrhage 57545685 K92.1 hospitaliz ation complicate d by GI hemorrhage monitor cbc on 12/02/22 and need for iron studies vs transfusio nf/u with GI as above Deep venou s thrombosis 008898686 I82.492 eliquis 5 mg bid continueds ee above with recent fx and GI bleed Gastroesop hageal reflux disease 067497055 K21.9 see abovemaint ained on omeprazole 20 mg qdbiopsy did not show Reaves's esophagusm onitor for sx [id number] LOIS DavalosP [facility] on [address] [place] [address] 12/02/2022 12:08:17 12/04/2022 09:24:13 Familial multiple polyposis syndrome 60620190 D12.6 pt with hx of familial multiple polyposis syndrome with hx of J pouch creationup per endoscopy and colonoscop y done on 11/18/22f/u with Dr Naman MARIA to go over resultsof note pt - accding to reports for procedures pt will need f/u colonoscop y in 6 months and f/u to schedule serial polypectom ies for gastric and duodenal polyps, next in 3 monthswith chronic diarrhea continue imodium 2 mg 1 bid and continue prn q 3 hrs dosingmoni tor for worsening sxs Anemia of chronic disease 360600045 D63.8 minimal dc summary available did not discuss pt having iron transfusio npt notes iron transfusio n while in pthgb dropped slightly to 8.4 today Closed fra cture distal tibia 478116961 S82.392D continue NWBincreas e oxycodone to 2.5- 5 mg q 6 prncontinu e PT Benson/u with ortho in 1-2 weeks Gastrointe stinal hemorrhage 30174801 K92.1 hospitaliz ation complicate d by GI hemorrhage monitor cbc on 12/02/22 then weekly on Mondays and need for iron studies vs transfusio nf/u with GI as above Deep venou s thrombosis 136935844 I82.492 eliquis 5 mg bid continueds ee above with recent fx and GI bleed Gastroesop hageal reflux disease 188259016 K21.9 see abovemaint ained on omeprazole 20 mg qdbiopsy did not show Reaves's esophagusm onitor for sx Thrombocytosis 5509303 D 75.839 platelets 600 today 12/02/22cbc weekly on Mondays AYDEE Davalos [facility] on [address] [place] [address] 12/09/2022 11:00:18 12/11/2022 15:49:21 Familial multiple polyposis syndrome 32399013 D12.6 pt with hx of familial multiple polyposis syndrome with hx of J pouch creationup per endoscopy and colonoscop y done on 11/18/22f/u with Dr Naman MARIA to go over resultsof note pt - accding to reports for procedures pt will need f/u colonoscop y in 6 months and f/u to schedule serial polypectom ies for gastric and duodenal polyps, next in 3 monthswith chronic diarrhea continue imodium 2 mg 1 bid and continue prn q 3 hrs dosingmoni tor for worsening sxs Anemia of chronic disease 478281855 D63.8 minimal dc summary available did not discuss pt having iron transfusio npt notes iron transfusio n while in pthgb dropped slightly to 8.3 on 12/06/22 Closed fra cture distal tibia 036295769 S82.392D continue NWBoxycodo ne 2.5- 5 mg q 6 prncontinu e PT Benson/u with ortho in 1-2 weeks Gastrointe stinal hemorrhage 68625697 K92.1 hospitaliz ation complicate d by GI hemorrhage monitor cbc weekly on Mondays and need for iron studies vs transfusio nf/u with GI as above Deep venou s thrombosis 644629460 I82.492 concern for increased edema in LLEordered venous doppler LLEeliquis 5 mg bid continueds ee above with recent fx and GI bleed Gastroesop hageal reflux disease 962894810 K21.9 see abovemaint ained on omeprazole 20 mg qdbiopsy did not show Reaves's esophagusm onitor for sx Thrombocytosis 1476907 D 75.839 platelets improved to 546 on 12/06/22cbc weekly on Mondays though was done on Friday last week [id number] JANIE COLÓN NP [facility] on [address] [place] [address] [phone] 3 12/17/2022 10:42:24 12/19/2022 15:43:08 Deep venous thrombosis 715032666 I82.492 concern for increased edema in LLEordered venous doppler LLE - ? results - none found in chart - will re-request eliquis 5 mg bid continued for now Familial m ultiple polyposis syndrome 27892386 D12.6 pt with hx of familial multiple polyposis syndrome with hx of J pouch creationup per endoscopy and colonoscop y done on 11/18/22f/u with Dr Naman AMRIA to go over resultsof note pt - accding to reports for procedures pt will need f/u colonoscop y in 6 months and f/u to schedule serial polypectom ies for gastric and duodenal polyps, next in 3 monthswith chronic diarrhea continue imodium 2 mg 1 bid and continue prn q 3 hrs dosingmoni tor for worsening sxs Anemia of chronic disease 825866508 D63.8 minimal dc summary available did not discuss pt having iron transfusio npt notes iron transfusio n while in pthgb dropped slightly to 8.3 on 12/06/22, repeat in amCBC q friday order in place - will continue depending upon CBC results in am Closed fra cture distal tibia 551074451 S82.392D continue NWBoxycodo ne 2.5- 5 mg q 6 prncontinu e PT Benson/u with ortho in 4 wks, get most recent OV note Gastrointe stinal hemorrhage 94666102 K92.1 hospitaliz ation complicate d by GI hemorrhage monitor cbc weekly on Mondays and need for iron studies vs transfusio nWeekly CBC does not appear to have been done recently, will check CBC x 1 in am, and then re-conside r continuati on of q friday labsf/u with GI as above Gastroesop hageal reflux disease 800817307 K21.9 see abovemaint ained on omeprazole 20 mg qdbiopsy did not show Reaves's esophagusm onitor for sx Thrombocytosis 7632041 D 75.839 platelets improved to 546 on 12/06/22cbc weekly on Mondays though was done on Wednesday 12/06, no other results in chart, see above plan with CBC [id number] JANIE COLÓN NP [facility] on [address] [place] [address] [phone] 3 12/26/2022 08:54:10 12/30/2022 15:59:21 Deep venous thrombosis 705036899 I82.492 concern for increased edema in LLEordered venous doppler LLE - ? results - none found in chart - will re-request againeliqu is 5 mg bid continued for now Familial m ultiple polyposis syndrome 75228413 D12.6 pt with hx of familial multiple polyposis syndrome with hx of J pouch creationup per endoscopy and colonoscop y done on 11/18/22f/u with Dr Naman MARIA to go over resultsof note pt - accding to reports for procedures pt will need f/u colonoscop y in 6 months and f/u to schedule serial polypectom ies for gastric and duodenal polyps, next in 3 monthswith chronic diarrhea continue imodium 2 mg 1 bid and continue prn q 3 hrs dosingmoni tor for worsening sxsPt. inquiring when next appt. is, thinks it is soon - will check with delinquent tax collector Anemia of chronic disease 679156404 D63.8 minimal dc summary available did not discuss pt having iron transfusio npt notes iron transfusio n while in pthgb dropped slightly to 8.3 on 12/06/22, repeat requested for 12/18, no results in chart. Will ask nsg. to obtain results, and if not done will reorder for amCBC q friday order in place - will continue depending upon CBC results in am Closed fra cture distal tibia 105837852 S82.392D continue NWBoxycodo ne 2.5- 5 mg q 6 prncontinu e PT Benson/u with ortho in 4 wks Gastrointe stinal hemorrhage 66375844 K92.1 hospitaliz ation complicate d by GI hemorrhage monitor cbc weekly on Mondays and need for iron studies vs transfusio nCBC does not appear to have been done recently, will check with nsg. re: 12/18 results. If not done, do in am (or next lab day). Re-conside r continuati on of q friday labsf/u with GI as above Gastroesop hageal reflux disease 445477073 K21.9 see abovemaint ained on omeprazole 20 mg qdbiopsy did not show Reaves's esophagusm onitor for sx Thrombocytosis 2909834 D 75.839 platelets improved to 546 on 12/06/22cbc weekly on Mondays though was done on Wednesday 12/06, no other results in chart, see above plan with CBC [id number] AYDEE Davalos [facility] on [address] [place] [address] 01/02/2023 11:13:20 01/06/2023 14:54:04 Deep venous thrombosis 559107949 I82.492 venous doppler LLE n 12/11/22 negative for dvt - report signed and placed in pt charteliqu is 5 mg bid as she has hx of DVTsmonito r for bleeding Familial m ultiple polyposis syndrome 23892330 D12.6 pt with hx of familial multiple polyposis syndrome with hx of J pouch creationup per endoscopy and colonoscop y done on 11/18/22f/u with Dr Naman Leblanc chronic diarrhea continue imodium 2 mg 1 bid and continue prn q 3 hrs dosingmoni tor for worsening sxscolonos copy/upper endoscopy scheduled for late January Anemia of chronic disease 837358120 D63.8 hgb Closed fra cture distal tibia 222764649 S82.392D continue NWBoxycodo ne 2.5- 5 mg q 6 prncontinu e PT OTincrease baclofen to 20 mg tid (was on 10 mg tid)f/u with ortho as scheduled Gastroesop hageal reflux disease 845438903 K21.9 omeprazole 20 mg qdbiopsy did not show Reaves's esophagusm onitor for sxs Thrombocytosis 8232855 D 75.839 platelets improved to 367 on 12/27/22rech austen cbc, cmp on 01/08/23 Asthma 071802676 J45.50 see hpiappears stable todayIncru se Ellipta 62.5 mcg qdmonteluk ast 10 mg qdalbutero l HFA 2 puf q6h prnalbuter ol per nebulizer bid and q4h prnAdvair 500-50 mcg 1 puff bidcetiriz ine 10 mg qd and q8h prncontinu e allergy shots/immu notherapyf /u basic acoustic analyst [id number] Donal Camacho MD [facility] on [address] [place] [address] [id number] 3 01/09/2023 15:12:08 01/15/2023 08:25:44 Spasm of back muscles 090128006 M62.830 now on baclofenmo nitor for effect Closed fra cture distal tibia 241393296 S82.392D therapy to followfoll ow ortho recs and update with concerns Deep venou s thrombosis 347014050 I82.492 eliquis 5 mg bidcontinu e to be held prior to surgical procedure Obstructiv e sleep apnea syndrome 99968862 G47.33 currently not on cpapwill request prior study and restart at facility [id number] SIOMARA DOWNS [facility] on [address] [place] [address] [phone] 3 01/16/2023 12:02:05 01/21/2023 14:48:03 Spasm of back muscles 268504154 M62.830 continue on baclofen, will not increase at this timeawaiti neurology consultmon itor for effectcont inue lyrica Closed fra cture distal tibia 707324345 S82.392D therapy to followfoll ow ortho recs and update with concerns [id number] SIOMARA DOWNS [facility] on [address] [place] [address] [id number] 3 01/31/2023 11:13:21 02/04/2023 16:00:40 Spasm of back muscles 627817184 M62.830 continue on baclofenpl ease reschedule neurology consult MOE [id number] Donal Camacho MD [facility] on [address] [place] [address] 02423-468 3 02/12/2023 10:43:47 02/19/2023 10:40:18 Closed fracture distal tibia 788504578 S82.392D see HPInow able to ambulate up to 10 feet with walker with therapyabl e to stand at parallel bars > 2 minmonitor for continued improvemen t Gastrointe stinal hemorrhage 79654487 K92.1 see HPImonitor cbcGI eval and treat now to be reschedule d Deep venou s thrombosis 344178980 I82.492 eliquis 5 mg bid was to be held prior to proceduren ow continued until can be reschedule dsee above with GI bleed Gastroesop hageal reflux disease 447151115 K21.9 see abovemaint ained on omeprazole 20 mg qdmonitor for sx Substance abuse 57825469 F19.10 methadone 105 mg qdcontinue d with above addition of oxycodone [id number] Donal Camacho MD [facility] on [address] [place] [address] 71927-822 3 02/26/2023 13:32:47 03/03/2023 15:34:02 Dependent edema 619973233 R60.0 dramatic increase in lowerlasix 20 mg bid x 5 days then reassessth is appears secondary to patient now being on her feet and in wheelchair morecounse led to be in bed with legs elevatedbm p ordered for friday Closed fra cture distal tibia 061898109 S82.392D continued slow improvemen t with therapymon itor for continued improvemen t Deep venou s thrombosis 006635237 I82.492 maintained on eliquis 5 mg bidnoted hx of GI bleedsee above for bilateral lower extremity edema [id number] Donal Camacho MD [facility] on [address] [place] [address] 60991-458 3 03/17/2023 14:37:21 03/26/2023 09:00:01 Anemia 018442548 D50.8 concern for sx associated with anemiawill recheck cbc Bilateral cramp of muscle of lower limbs 6201013320 6709518 R25.2 nocturnal crampingbm p in am to eval lytes Dependent edema 32378704 4 R60.0 global lower extremity weakness eval by neuroawait ing consult notes [id number] Donal Camacho MD [facility] on [address] [place] [address] 96958-002 3 03/19/2023 13:18:53 03/26/2023 10:40:21 Bilateral cramp of muscle of lower limbs 8134891833 9737039 R25.2 nocturnal crampingla b results pendingadd flexeril 5 mg qhs prnmonitor for effect [id number] AYDEE Davalos [facility] on [address] [place] [address] [id number] 3 03/24/2023 13:51:42 03/26/2023 11:08:59 Spasm of back muscles 885692216 M62.830 pt has high dose baclofenwi ll stop and switch to cyclobenza olive to see if it is more effectivet aper off baclofen 10 mg tid x 5 days, 5 mg tid x 5 days then dcdc current order of flexerilst art flexeril 5 mg tid x 10 days then increase to 10 mg tidmonitor for effect Migraine 46631236 G43.80 9 start amitriptyl ine 10 mg 1 qhsibuprof en 600 mg q 6 hrs prn migrainemo nitor for effect [id number] AYDEE FLETCHER [facility] on [address] [place] [address] 79162-416 3 04/08/2023 16:58:56 04/11/2023 10:03:32 Spasm of back muscles 055133663 M62.830 recently switched from baclofen to cyclobenza olive; she continues to have pain and spasmupcom ing neurology appt.bhavin flaherty on scheduled cyclobenza olive 10 mg TID-will d/c and start robaxin 1500 mg QID for 3 days , then 1500mg TID PRN Migraine 89712301 G43.80 9 start amitriptyl ine 10 mg 1 qhsibuprof en 600 mg q 6 hrs prn migrainemo nitor for effect Closed fra cture distal tibia 279460200 S82.392D continues to work with therapy. Gastrointe stinal hemorrhage 30601603 K92.1 there has been no reported GI upset or bleedingon eliquis monitormon itor labs Deep venou s thrombosis 279772662 I82.492 eliquis 5 mg bidHx of GI bleedmonit or for abnormal bleeding/b ruising Gastroesop hageal reflux disease 065011850 K21.9 maintained on omeprazole 20 mg qdmonitor for GI upset Substance abuse 67259330 F19.10 methadone 105 mg qdon oxycodone - ? need to start tapering [id number] AYDEE FLETCHER [facility] on [address] [place] [address] [id number] 3 04/21/2023 15:10:48 04/23/2023 13:27:04 Spasm of back muscles 723214290 M62.830 Requesting to switch back to baclofen- will restart per her request.re cently switched from baclofen to cyclobenza olive to robaxin 1500 mg QID for 3 days , then 1500mg TID PRNshe continues to have pain and spasmupcom ing neurology appt. [id number] AYDEE FLETCHER [facility] on [address] [place] [address] 55431-966 3 06/08/2023 08:12:27 06/10/2023 15:16:44 Critical illness myopathy 711745279 G72.81 BLE/foot flaccidsee n by physiatry with recommenda tions to add zanaflexdi scussed with pt, side effects reviewed, she will like to try and hopes for improvemen t.monitor BP daily for 1 week then weekly Spasm of back muscles 20 0680110 M62.830 Requesting to switch back to baclofen- will restart per her request.re cently switched from baclofen to cyclobenza olive to robaxin 1500 mg QID for 3 days , then 1500mg TID PRNshe continues to have pain and spasmupcom ing neurology appt. [id number] Leilani Lubin MD [facility] on [address] [place] [address] [id number] 3 06/23/2023 18:08:30 07/07/2023 14:58:05 Critical illness myopathy 847874276 G72.81 Recently started on tizanidine 2 mg TID prn to supplement Baclofen 20 mg TID after failures on multiple muscle relaxants. She notes minimal improvemen t.Continue PT/OT.Disha lopez sommerjulio morel Spasm of back muscles 20 4789832 M62.830 As above.PT/O T as as ableMonito r sxs. Migraine 94649860 G43.80 9 No sxs tonight.Co ntinue amitriptyl ine 10 mg qhs and ibuprofen 600 mg q 6 hrs prn migraineMo nitor sxs Closed fra cture distal tibia 941182197 S82.392D In 10/2022, now resolved. Gastrointe stinal hemorrhage 37436963 K92.1 No recent sxsMonitor labs Deep venou s thrombosis 583763663 I82.492 Continue Eliquis 5 mg BIDNeed to monitor closely due to hx of GI bleedMonit or sxs and labs Gastroesop hageal reflux disease 279657533 K21.9 No current sxs.Contin ue omeprazole 20 mg qdMonitor for GI sxs Substance abuse 82672865 F19.10 Continue methadone 105 mg qdTaper oxy as ableF/U with clinic as planned. Asthma 976060295 J45.50 S/P severe exacerbati on.Will schedule albuterol nebs BID and continue nebs or inhaler q 4 hrs prn.Contin ue Advair 100/50 BID and singulair 10 mg qd. Anemia [id number] D64.89 Last hgb was 7.2 in 02/2023, not rechecked since then.No evidence of recent GI bleed or other blood loss sxs.Will recheck on 06/25 Major depr essive disorder [id number] F33.1 Mood good today.Cont inue duloxetine 90 mg qd.Monitor mood.Consu lt psych prn Anxiety 55672109 F41.1 Continue duloxetine as above and prazosin 2 mg qhs, melatonin 3 mg qhs, trazadone 50 mg qhs, and hydroxyzin e 50 mg q 6 hrs prn.Monito r mood.Psych prn Fibromyalgia 031597006 M 79.7 Continue meds as above and Lyrica 150 mg TID, duloxetine 60 mg BID, APAP 650 mg q 6 hrs prn, ibuprofen 600 mg q 6 hrs prn and oxycodone 10 mg q 6 hrs prn.Taper oxy as able.Monit or sxs. Dermatomyositis [id number] 8 M33.13 In hx.Continu e sxatic tx. Hypertensive disorder 38 986162 I10 BP remains in control on no specific BP meds, but many of her other meds have a tendency to lower BP.Continu e to monitor BP and labs. Rheumatoid arthritis 698 21835 M06.89 No current tx.Continu e meds as above for sxs.F/U with rheum as planned. Obstructiv e sleep apnea syndrome 67192880 G47.33 Sleep study done on 05/27- found to have mild TRI, recs for further outpt study and supplement al O2 PRN.Being followed by RT here. Pruritic disorder 852158 002 L29.8 Will start diphenhydr banks 50 mg q 4 hrs prn.Monito r for oversedati on as pt is also on hydroxyzin e. [id number] AYDEE FLETCHER [facility] on [address] [place] [phone] 3 07/24/2023 07:53:30 07/28/2023 16:29:31 Acute pulmonary edema 22031559 J81.0 Pulmonary edema pattern seen on chest x-ray and proBNP is elevated.S he does not carry a prior diagnosis of CHF.Cardio logy consulted- echocardio gram was unremarkab le, with the exception of mild MR which is common in healthy adults.It was felt that her dyspnea is non-cardia c/no concerns for CHF by cardiologi st. Dyspnea [id number] R06.00 see hpiresolve dcontinue with oxygen prncontinu e abx for possible CAP,.CRP was initially quite elevated now trending down along with white blood cell count.foll ow-up labs on 07/28/23kim mccarthy cessation- offered and refused nicotine patch. [id number] Lisa Estrada [facility] on [address] [place] [address] 3 08/01/2023 10:29:39 08/22/2023 15:30:42 Dyspnea 184027240 R06.00 see hpiresolve dcontinue with oxygen prncontinu e abx for possible CAP,.CRP was initially quite elevated now trending down along with white blood cell count.foll ow-up labs on 07/28/23[facility] [place] [facility] cessation- offered and refused nicotine patch. Acute pulmonary edema 40 564669 J81.0 Pulmonary edema pattern seen on chest x-ray and proBNP is elevated.S he does not carry a prior diagnosis of CHF.Cardio logy consulted- echocardio gram was unremarkab le, with the exception of mild MR which is common in healthy adults.It was felt that her dyspnea is non-cardia c/no concerns for CHF by cardiologi . Fibromyalgia 982203220 M 79.7 c/o soreness and pain.lidod erm patch and current tx planPT/OT Hypertensive disorder 38 751008 I10 stablecont inue current meds. [id number] AYDEE FLETCHER [facility] on [address] [place] [phone] 08/22/2023 09:29:35 08/27/2023 16:04:40 Acute respiratory failure 30358206 J96.00 with hypercapni a - resolved in acute care2/2 [employer] recurrent due to not having NIVexacerb ated by aspiration pneumoniap rednisone 40 mg dailyconce rn for pulmonary edema possible but recent echocardio gram reassuring , no need for diureticsn ow on bipap at [facility]. - encouraged compliance follow up with pulmonolog y.consider methadone taper currently on 105 mg -could also be contributi ng to her acute situation and chronicall y could affect her respiratio n. Pneumonia 894479893 J18. 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 Hypertensive disorder 38 819666 I10 prazosin 6 mg at bedtime Migraine 36385633 G43.80 9 amitriptyl ine 10 mg qhsbuprofe n 600 mg q 6 hrs prn migraineMo nitor sxs Asthma 259125477 J45.50 albuterol nebs BIDcontinu e nebs or inhaler q 4 hrs prn.Contin ue Advair 100/50 BIDsingula ir 10 mg qd. Anemia 308650129 D64.89 Last hgb was 7.2 in 02/2023, not rechecked since then.No evidence of recent GI bleed or other blood loss sxs.Will recheck on 06/25 Deep venou s thrombosis 395719428 I82.492 Continue Eliquis 5 mg BIDNeed to monitor closely due to hx of GI bleedMonit or sxs and labs Fibromyalgia 134554469 M 79.7 ContinueLy salome 150 mg TIDduloxet ine 60 mg BIDAPAP 650 mg q 6 hrs prn,ibupro fen 600 mg q 6 hrs prnoxycodo ne 10 mg q 6 hrs prn. Gastroesop hageal reflux disease 253313358 K21.9 Continue omeprazole 20 mg qd Substance abuse 90477188 F19.10 Continue methadone 105 mg qdF/U with clinic as planned. Major depr essive disorder 264002639 F33.1 Continue duloxetine 90 mg qd.Monitor mood.follw ed by Anxiety 03740270 F41.1 Continue duloxetine prazosin 2 mg qhs,melato pedro 3 mg qhs,trazad one 50 mg qhs,hydrox yzine 50 mg q 6 hrs prn.Monito r mood. Obstructiv e sleep apnea syndrome 34505612 G47.33 Now on Bipap at [facility] and has been tolerating well.she report improved activity level during the day time.glenn mon less naps. [id number] AYDEE FLETCHER [facility] on [address] [place] [phone] 3 09/02/2023 11:20:17 10/01/2023 15:13:12 Hypertensive disorder 02554977 I10 prazosin 6 mg at bedtime Asthma 111557129 J45.50 albuterol nebs BIDcontinu e nebs or inhaler q 4 hrs prn.Contin ue Advair 100/50 BIDsingula ir 10 mg qd. Fibromyalgia 498349837 M 79.7 ContinueLy salome 150 mg TIDduloxet ine 60 mg BIDAPAP 650 mg q 6 hrs prn,ibupro fen 600 mg q 6 hrs prnoxycodo ne 10 mg q 6 hrs prn. Gastroesop hageal reflux disease 729415279 K21.9 Continue omeprazole 20 mg qd Substance abuse 91632369 F19.10 Continue methadone 105 mg qdF/U with clinic as planned.Is interested in having methadone tapered down. Major depr essive disorder 500803794 F33.1 stable today.Cont inue duloxetine 90 mg qd.Monitor mood.follw ed by Anxiety 21801016 F41.1 stable todayConti nue duloxetine prazosin 2 mg qhs,melato pedro 3 mg qhs,trazad one 50 mg qhs,hydrox yzine 50 mg q 6 hrs prn.Monito r mood. Obstructiv e sleep apnea syndrome 24932530 G47.33 Now on Bipap at [facility] and has been tolerating well.she report improved activity level during the day time.glenn g less naps. COVID-19 331296344 U07.1 Tested postiveshe continues without sxwill monitor [id number] Lisa Abarca Natalie [facility] on [address] [place] [phone] 10/17/2023 13:48:07 10/22/2023 16:15:53 Hypertensive disorder 42909343 I10 prazosin 6 mg at bedtime Asthma 594546531 J45.50 albuterol nebs BIDcontinu e nebs or inhaler q 4 hrs prn.Contin ue Advair 100/50 BIDsingula ir 10 mg qd. Fibromyalgia 226428805 M 79.7 ContinueLy salome 150 mg TIDduloxet ine 60 mg BIDAPAP 650 mg q 6 hrs prn,ibupro fen 600 mg q 6 hrs prnoxycodo ne 10 mg q 6 hrs prn.right side pain. obtain cxr rule out respirator y etiology v fibromyalg ia. Gastroesop hageal reflux disease 238050138 K21.9 Continue omeprazole 20 mg qd Substance abuse 10281093 F19.10 Continue methadone 105 mg qdF/U with clinic as planned.Is interested in having methadone tapered down. Major depr essive disorder 166297519 F33.1 stable today.Cont inue duloxetine 90 mg qd.Monitor mood.[facility] ed by Anxiety 03526054 F41.1 stable todayConti nue duloxetine prazosin 2 mg qhs,melato pedro 3 mg qhs,trazad one 50 mg qhs,hydrox yzine 50 mg q 6 hrs prn.Monito r mood. Obstructiv e sleep apnea syndrome 68999270 G47.33 Now on Bipap at [facility] and has been tolerating well.she report improved activity level during the day time.glenn mon less naps. Health Concerns Section Related Observation LastModified by Organization Detai ls LastModified Time None Recorded Concern Status LastModified by Organization Details LastModified Time None Recorded Advance Directives Directive Y: Full code; all interventi ons Payers Encounter Date Sequence Insurance Name Policy Number Policy Martines Covered Member ID Martines Member ID Guarantor Name 08/01/2023 1 [place] [facility] Rabia Proctor [id number] Rabia Proctor 08/22/2023 1 [place] [facility] Rabia Proctor [id number] Rabia Proctor 08/26/2023 1 [place] [facility] Rabia Proctor [id number] Rabia Proctor 09/02/2023 1 [place] [facility] Rabia Proctor [id number] Rabia Proctor 10/17/2023 1 [place] [facility] Rabia Proctor [id number] Rabia Proctor Notes Date Note Type Note Provider Name and Address Organization Details Recorded Time 08/01/2023 text/html Rabia is 47 yr old female seen today for acute rounding She was sent to [facility] for shortness of breath, she received solumedrol from ems prior to arrival to ED. Chest x-ray in the ED revealed mild pulmonary edema, bedside ultrasound did not show any acute pathology. Labs was significant for leukocytosis white blood cell count 25 and elevated CRP. despite tx with ceftriaxone and doxycycline,leukocyto sis persisted. She continued to require higher level of oxygen than baseline, 4 L. She did have intermittent wheezing and remained on nebulizer treatments as well as pulmonary toileting. echocardiogram showed some mild MRcardiologist did not think this was CHF. Sx improved significantly overnight, she was able to wean down oxygen.However leukocytosis persist believed to be secondary to steroids. She was discharge back to [facility] on oral abx. elevated WBC 2/2 steroids on 07/30 22.06 decreased appetite. decreased sleep.BLE pitting edema. took 3 steps yesterday per pt. reports soreness and pain. lidoderm for pain. Lisa AbarcaFosterJarad biancaellen [address] [facility], [address], [place], [address], [facility] [employer] 08/22/2023 09:51:14 08/22/2023 text/html Rabia is a 47 year old seen today for readmission. Since returning there has been no acute nursing concerns. She is currently lying in bed in [facility]. On 08/18/23 Patient was sent to [facility] for evaluation of altered mental changes, found to be hypercarbic and hypoxia. She was also found to have pneumonia and started on abx. She was placed on BIPAP and her co2 improved. She does have a diagnosis of OHS so NIV would likely be appropriate for her and prevent readmission. She was discharged back to [facility] with bipap and is recommended to follow up with pulmonology for formal sleep study. Molst: Full code AYDEE FLETCHER [address] [facility], [address], [place], [address], [facility] [employer] [facility] 08/22/2023 22:32:57 08/26/2023 text/html Rabia is a 47 yr old patient seen today for routine rounding. PMH includes HTN, tfllui-clidzq-y/p intubation, critical illness myopathy, dysphagia, RA, dermatomyositis, migraines, GERD, MDD, fibromyalgia, hx of substance abuse disorder on methadone, familial polyposis coli (has a J pouch (1994, revision 2004), stress incontinence, and s/p YOAV 2019 for fibroids. On exam she is OOB in wheel chair, she is coloring in an adult coloring book, She tells me that she is doing well, she reports that she has had more energy and is able to stay awake and feels juanis tired since she has been wearing bipap. she a little disappointed that her upcoming appt this week for colonoscopy had to be cancelled because of covid out break in facility, she is concerned about polyps previously seen on exam. she also is upset that she missed another allergy appointment due to being in the hospital Patient had a recent hospital stay from 07/17 to 07/19 for acute pulmonary edema and and 08/19-08/21 for acute respiratory failure. She is requesting to have her methadone tapered as well, she reports during her last hospitalization her dose was tapered and she tolerated well. Overall she continues to have generalized muscle aches and spasm but she realizes this is part of the her disease process and medications can her minimize side effects. AYDEE FLETCHER [address] [facility], [address], [place], [address], [facility] 08/27/2023 08:20:41 09/02/2023 text/html Patient is a 47 yr old patient seen today for acute rounding visit. PMH includes HTN, hoxfiv-dlegsz-i/p intubation, critical illness myopathy, dysphagia, RA, dermatomyositis, migraines, GERD, MDD, fibromyalgia, hx of substance abuse disorder on methadone, familial polyposis coli (has a J pouch (1994, revision 2004), stress incontinence, and s/p YOAV 2019 for fibroids. On exam she is OOB in wheel chair, She is stable. Breathing is easy and unlabored, denies any new pain or discomfort, she appears well. Patient tested positive for COVID, she is asymptomatic, there is no acute nursing concerns. AYDEE FLETCHER [address] [facility], [address], [place], [address], [facility] 09/02/2023 16:21:52 10/17/2023 text/html Patient is a 48 yr old patient seen today for acute rounding visit. PMH includes HTN, ynkcbk-zpnxjo-c/p intubation, critical illness myopathy, dysphagia, RA, dermatomyositis, migraines, GERD, MDD, fibromyalgia, hx of substance abuse disorder on methadone, familial polyposis coli (has a J pouch (1994, revision 2004), stress incontinence, and s/p YOAV 2019 for fibroids. On exam she is OOB in wheel chair, She is stable. Breathing is easy and unlabored, states she has a new right side pain, she appears well. Patient tested positive for COVID last month, recovered, there is no acute nursing concerns. Lisa cooney [address] [facility], [address], [place], [address], [facility] [employer] 10/20/2023 05:58:31 OBGyn Episode No OBEpisode recorded.
== END 2025-03-02 16:06 | disposition home or self-care (01) ==
PROVIDERS: PCP Hospitalist; Visit Provider Student in an Organized Health Care Education/Training Program
DX: M06.09 Rheumatoid arthritis without rheumatoid factor, multiple sites (principal); M33.12 Other dermatomyositis with myopathy; M75.51 Bursitis of right shoulder
CPT/HCPCS: 20610; 99214

== ENCOUNTER → 2025-03-02 15:20 | Outpatient (BNVA) | payer MEDICAID, SELFPAY | PROVIDERS: PCP Hospitalist; Visit Provider Student in an Organized Health Care Education/Training Program | DX: M75.51 Bursitis of right shoulder (principal); M33.12 Other dermatomyositis with myopathy; M06.00 Rheumatoid arthritis without rheumatoid factor, unspecified site | CPT/HCPCS: 20610; 99212; J3300 ==